=== PATIENT | male | born 1930 | race Caucasian/White ===

== ENCOUNTER 2016-10-05 15:26 | Emergency (ER) | payer MEDICARE, OTHER ==
[2014-09-28 16:29] VITALS: BMI 25.7
[~2016-10-05 15:26] MED LIST: ASCORBIC ACID500 MG PO; DIOVAN160 MG PO; DIOVAN80 MG PO; FOLIC ACID1 MG; HYTRIN5 MG PO; LOMOTIL TABLET1 TAB PO; LYRICA75 MG PO; MOBIC7.5 MG PO; NORVASC2.5 MG PO; PRILOSEC20 MG PO; RESTORIL15 MG PO; ULTRAM50 MG PO; VITAMIN B COMPL1 TAB PO; [UNRECOGNIZED DRUG - OTHER] PO
[2016-10-05 17:45] LABS: APPEARANCE CLEAR (CLEAR); BILIRUBIN NEGATIVE (NEGATIVE); COLOR YELLOW (YELLOW); GLUCOSE NEGATIVE (NEGATIVE); KETONE NEGATIVE (NEGATIVE); LEUKOCYTE ESTERASE NEGATIVE (NEGATIVE); NITRITE NEGATIVE (NEGATIVE); PROTEIN TRACE mg/dL (NEGATIVE); UROBILINOGEN NORMAL (NORMAL)
[2016-10-06] MEDS ORDERED: DIOVAN160 MG PO (19:57)
[2016-10-06] MEDS ORDERED: NORVASC5 MG PO (20:00)
[2016-10-06] MEDS ORDERED: HYTRIN5 MG PO (20:01)
[2016-10-06] MEDS ORDERED: LAMISIL250 MG PO (20:09)
== END 2016-10-05 18:40 | disposition home or self-care (01) ==
LOC: D.ER 15:26
PROVIDERS: Physician Assistant Medical
DX: M54.16 Radiculopathy, lumbar region (principal); I10 Essential (primary) hypertension

== ENCOUNTER 2016-10-06 15:50 | Inpatient (IN) | payer MEDICARE, OTHER ==
[~2016-10-06] VITALS: Ht 182.9 cm; Wt 88.6 kg
--- NOTE | 2016-10-06 17:52 | NUR ---
IV SITED TO LEFT HAND WITH 22 GA X1 STICK. NS INITIATED @ 30 CC/HR VIA PUMP. MORPHINE 2 MG SIVP. SCDs APPLIED TO BLE. CALL LIGHT IN REACH. FAMILY IN ROOM. WILL CONTINUE WITH PLAN OF CARE.
[2016-10-06 18:17] VITALS: BP 151/76; Ht 182.9 cm; Wt 88.6 kg
[2016-10-06 18:36] LABS: BASOPHILS 0.4 % (0-2); EOSINOPHILS 2.5 % (0-7); HEMATOCRIT 40.1 % (42.0-54.0); HEMOGLOBIN 13.3 g/dL (13.5-17.5); IMMATURE GRANULOCYTES 0.2 % (0-5); LYMPHOCYTES 29.9 % (15-50); MCH 31.1 pg (26.0-34.0); MCHC 33.2 g/dL (31.0-37.0); MCV 93.9 fL (80.0-100.0); MEAN PLATELET VOLUME 10.7 fL (7.4-10.4); MONOCYTES 10.3 % (2-11); NEUTROPHILS 56.7 % (40-80); PLATELET COUNT 105 10x3/uL (130-400); RBC 4.27 10x6/uL (4.20-6.10); RDW 13.2 % (11.5-14.5); WBC 4.8 10x3/uL (4.8-10.8)
[2016-10-06 18:39] LABS: INR 1.11 (0.85-1.17); PROTIME 14.2 SECONDS (11.6-15.0)
--- NOTE | 2016-10-06 18:55 | NUR ---
IV STEROIDS PER ORDER. HX OBTAINED AND MED REC REVIEWED. NO CHANGES IN INITIAL ASSESSMENT. CALL LIGHT IN REACH. VISITORS AT BEDSIDE. WILL CONTINEU WITH PLAN OF CARE.
[2016-10-06] MEDS ORDERED: DIOVAN160 MG PO (19:57)
[2016-10-06 19:59] LABS: ANION GAP 7.5 mmol/L (8-16); CALCIUM 8.6 mg/dL (8.5-10.1); CARBON DIOXIDE 33.4 mmol/L (21.0-32.0); CREATININE - SERUM 1.3 mg/dL (0.6-1.3); POTASSIUM - SERUM 3.9 mmol/L (3.5-5.1)
[2016-10-06 20:00] VITALS: BP 169/83
[2016-10-06] MEDS ORDERED: NORVASC5 MG PO (20:00)
[2016-10-06] MEDS ORDERED: HYTRIN5 MG PO (20:01)
[2016-10-06] MEDS ORDERED: LAMISIL250 MG PO (20:09)
--- NOTE | 2016-10-06 21:54 | NUR ---
PATIENT RESTING IN BED WITH EYES CLOSED NO SIGNS OF DISTRESS NOTED. ALERT AND ORIENTED. SCHEDULED MEDS GIVEN. SHIFT ASSESSMENT COMPLETED. DENIES ANY NEEDS AT THIS TIME. BED LOW. CALL LIGHT IN REACH
[2016-10-07] VITALS (7 sets, daily range): BP systolic 130–171; BP diastolic 71–82
--- NOTE | 2016-10-07 09:00 | NUR ---
ASSESSMENT PER FLOW SHEET.PT WITHOUT DISTRESS.CALL LIGHT IN REACH
--- NOTE | 2016-10-07 13:56 | HP ---
PATIENT: CLARISSA GALLEGO MEDICAL RECORD: [id number] ACCOUNT: [id number] LOCATION:[id number] : 30 ADMISSION DATE: 10/06/16 HISTORY AND PHYSICAL EXAMINATION REASON FOR ADMISSION: Intractable back and right leg pain, and foot drop. HISTORY OF PRESENT ILLNESS: The patient is an 86-year-old male with history of lumbar canal stenosis. He had surgery on his back several years ago with a decompression at L2-L3 and L3-L4. He has had chronic back pain since that time. He had acute onset of right radicular pain which is new in his right inner thigh and down into his knee 3 days ago. It became incapacitating, he initially went to the Emergency Room where plain x-rays showed postoperative changes. He was given oral Mepergan and told to follow up with me. The patient stated when I walked in the Emergency Room, his right leg buckled and he almost fell. He now has noticed some decreased strength in the legs and admitted to numbness. It seems that he cannot get out of pain and is now being directly admitted to the hospital for intractable back pain after MRI shows evidence of prior stenosis at multiple levels, but an L3-L4 herniated disc with right nerve root impingement. 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 PAST SURGICAL HISTORY: Lumbar discectomy and decompression by Dr. Deion Parra years ago at [place]. He has had 2 intrathecal injections, hospitalized October 06 for gastroenteritis resulting in acute renal insufficiency. ALLERGIES: SULFA, SHELLFISH, HYDROCODONE AND ATENOLOL CAUSING BRADYCARDIA. 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 He quit smoking over 41 years ago. He does not drink alcohol or use illicit drugs. He plays golf 3 times a week. His is in good health. MEDICATIONS: Mepergan 50 mg tablet q.4 hours for pain, Tylenol p.r.n., terazosin 5 mg p.o. at h.s., amlodipine 5 mg p.o. at bedtime, vitamin B complex 1 daily, Lyrica 75 mg p.o. t.i.d., meloxicam 15 mg daily, valsartan 160 mg daily, folic acid 1 mg daily, omeprazole 20 mg daily, Restoril 15 mg at h.s. p.r.n. sleep. REVIEW OF SYSTEMS: CONSTITUTIONAL: Denies fever or fatigue. HEENT: No recent visual change or sinus congestion. He has had some hearing loss. RESPIRATORY: No severe cough or sputum production. CARDIAC: No chest pain. GASTROINTESTINAL: No nausea, vomiting or constipation. GENITOURINARY: Nocturia once or twice nightly. ENDOCRINE: Denies polyuria, polydipsia, heat or cold intolerance. NEUROLOGIC: No history of stroke, TIA or vascular headaches. He has noticed decreased strength in his right leg for the last 48 hours. MUSCULOSKELETAL: Chronic and acute low back pain, now radicular into his right upper thigh and in the knee. HISTORY AND PHYSICAL [id number] CLARISSA GALLEGO PHYSICAL EXAMINATION: GENERAL: The patient appears in acute pain, sitting in a wheelchair, unable to stand on his right leg and walk meaningfully. His height is 6 feet. VITAL SIGNS: Blood pressure is 123/64, heart rate is 70 and regular, O2 sat 97% on room air. His weight is 196 pounds 13 ounces. HEENT: Normocephalic. Eyes are clear. NECK: Supple, without bruits. CHEST: Clear. HEART: Regular rate. ABDOMEN: Soft, nontender. GENITOURINARY: Unremarkable. RECTAL: Deferred. EXTREMITIES: No CC&E. NEUROLOGICAL: He is oriented to person, place and time. Upper extremities, unremarkable, good strength. Lower extremities, he has weak plantar and dorsiflexion of his right foot, 1/4 versus is 4/4 on the left. He dorsiflexes foot mainly by using his quadriceps. Reflexes are decreased bilaterally, right greater than left, in the lower extremities. Sensation, decreased sensation to touch on top of his right foot. Stat MRI of the lumbar spine showed edema and endplate erosion at L2-L3, prominent central left-sided disc bulging, L3-L4 herniated nucleus pulposus, lumbar canal stenosis, anterolisthesis of L3-L4 and spondylosis. PLAN: The patient is admitted to the hospital for pain control, IV steroids and neurosurgical consultation. TRANSINT:[id number] Voice Confirmation ID: [id number] DOCUMENT ID: [id number] GUERA LINARES MD at 1356 CC: [id number] DICTATION DATE: 10/07/16 0835 NUISANCE WILDLIFE TRAPPER: 10/07/16 1019 ADM IN [facility] [address] [id number]
--- NOTE | 2016-10-07 15:42 | NUR ---
Patient Name: CLARISSA GALLEGO Admission Status: Elective Accout number: [id number] Admission Date: 10-06-2016 : 1930 Admission Diagnosis: Attending: LOUIS Current LOS: 1 Anticipated DC Date: 10-08-2016 Planned Disposition: Home Primary Insurance: MEDICARE A & B Discharge Planning Comments: CM MET WITH PATIENT, , AND SON (MALVIN) REGARDING D/C NEEDS AND PLANS. MALVIN STATED HE WOULD DRIVE HIS FATHER HOME AT DISCHARGE. PATIENT HAS NO STEPS OR STAIRS AT HIS HOME. PATIENT IS INDEPENDENT WITH HIS CARE AND HAS A WALKER, WHEELCHAIR, CANE, AND BUILT IN SHOWER CHAIR AT HOME. PATIENTS PCP IS DR. LINARES AND PHARMACY IS [facility]. PATIENT HAS NOT HAD HOME HEALTH AND DOES NOT WANT IT AT THIS TIME. CM WILL CONTINUE TO FOLLOW PATIENT WITH D/C NEEDS AND PLANS. PCP DR. ENGLISH [facility] [phone] MALVIN (SON) [phone]) Reporting Lead: Tiffanie Wood Is the patient Alert and Oriented? Yes 0 * How many steps to enter\exit or inside your home? 0 0 * PCP DR. LINARES 0 * Pharmacy [facility] 0 * Preadmission Environment Home with Family 0 * ADLs Independent 0 * Equipment Cane Walker Wheelchair 0 * Other Equipment BUILT IN SHOWER CHAIR 0 * List name and contact numbers for known caregivers / representatives who currently or will assist patient after discharge: MALVIN (SON) [phone] * Community resources currently utilized None 0 * Additional services required to return to the preadmission environment? Yes 0 * Can the patient safely return to the preadmission environment? Yes 0 * Has this patient been hospitalized within the prior 30 days at any hospital? No 0 Grand Total: 0
--- NOTE | 2016-10-07 18:33 | NUR ---
DECLINES ENEMA STILL. HE IS WITHOUT DISTRESS.CONT PLAN OF CARE
--- NOTE | 2016-10-07 21:06 | NUR ---
PATIENT SITTING UP IN BED. ALERT AND ORIENTED. TALKING WITH VISITOR. DENIES ANY PAIN AT THIS TIME. SCHEDULED MEDS GIVEN. SHIFT ASSESSMENT COMLETED. BED LOW. CALL LIGHT IN REACH
--- NOTE | 2016-10-07 23:30 | NUR ---
PATIENT C/O PAIN 8/10 TO BACK/LEG. STATES HE WAS TRYING TO GET INTO A COMFORTABLE POSITION AND SHARP PAIN SHOT DOWN HIS LEG AND WOULD NOT EASE. PRN MORPHINE GIVEN ORDERED.
--- NOTE | 2016-10-08 01:33 | NUR ---
PATIENT COMPLAINING OF PAIN 8/10 TO BACK AND LEG. STATES PAIN EASED FOR A SHORT PERIOD BUT HAS RETURNED. REFUSING TO USE HEAT/ICE PACK. REQUESTING ADDITIONAL DOSE OF MORPHINE. GIVEN ORDERED.
--- NOTE | 2016-10-08 03:43 | NUR ---
PT C/O PAIN 12/01 TO BACK AND LEGS. STATES MORPHINE DOESNT LAST LONG ENOUGH. REQUESTED TYLENOL. GIVEN ORDERED.
--- NOTE | 2016-10-08 04:17 | NUR ---
EYES CLOSED RESPIRATIONS WITH EASE AND UNLABORED SR UP X2 CALL LIGHT WITHIN REACH.
[2016-10-08 06:30] VITALS: BP 141/72
--- NOTE | 2016-10-08 07:10 | NUR ---
ASSESSMENT PER FLOW SHEET.PT WITHOUT DISTRESS.PAIN 3/10 ON PAIN SCALE.PT REPORTS PAIN IN BACK.
--- NOTE | 2016-10-08 07:25 | NUR ---
ASSESSMENT PER FLOW SHEET.PT WITHOUT DISTRESS.PAIN 8/10 SCALE TO RIGHT ARM.MEDS ORDERED.PT IS GOING TO AMBULATE WITH FAMILY.
[2016-10-08 07:48] VITALS: BP 193/89
--- NOTE | 2016-10-08 08:05 | NUR ---
MEDS ORDERED. 2 LARGE SOFT STOOLS RESULTED FROM ENEMA THIS AM.MONITOR FOR NEEDS
--- NOTE | 2016-10-08 11:49 | NUR ---
PAIN MEDS ORDERED,WITHOUT DISTRESS.
[2016-10-08 12:13] VITALS: BP 164/76
[2016-10-08] MEDS ORDERED: MS CONTIN15 MG PO (12:19)
[2016-10-08] MEDS ORDERED: MEDROL DOSE PACK4 MG PO (12:20)
--- NOTE | 2016-10-08 13:50 | NUR ---
discharge instructions,states understanding.iv dcd with cath intact
--- NOTE | 2016-10-08 14:06 | NUR ---
LEFT UNIT VIA WHEELCHAIR.
--- NOTE | 2016-10-08 14:42 | NUR ---
LATE ENTRY CM REASSESSMENT NOTE: PATIENT D/C HOME TODAY BY PRIVATE CAR (SON). PATIENT HAD NO NEEDS FOR DISCHARGE.
== END 2016-10-08 14:06 | disposition home or self-care (01) | DRG 552 ==
LOC: D.MRI 15:50 → D.MS 17:11
PROVIDERS: ADMIT Family Medicine
DX: M51.26 Other intervertebral disc displacement, lumbar region (principal); M47.9 Spondylosis, unspecified; M21.379 Foot drop, unspecified foot; G25.81 Restless legs syndrome; N40.0 Benign prostatic hyperplasia without lower urinary tract symptoms; I10 Essential (primary) hypertension; K21.9 Gastro-esophageal reflux disease without esophagitis

== ENCOUNTER 2019-10-28 00:57 | Inpatient (IN) | payer MEDICARE, OTHER ==
[2019-10-28] VITALS (20 sets, daily range): BP systolic 104–148; BP diastolic 55–82; BMI 28.7
[~2019-10-28] VITALS: Ht 182.9 cm; Wt 92.0 kg
--- NOTE | ~2019-10-28 | HEMODYNAMI ---
PATIENT:CLARISSA GALLEGO MEDICAL RECORD: [id number] : 30 [id number] ADMISSION DATE: 10/28/19 Generatedon:10/28/20192:57 Patient name: CLARISSA GALLEGO Patient #: [id number] SSN: : 1930 Date of study: 10/28/2019 Page: Of Hemodynamic Procedure Report Patient Data Patient Demographics Procedure consent was obtained First Name: CLARISSA Gender: Male Last Name: JULIÁN : 1930 [facility] Initial: ANETA Age: 89 year(s) Patient #: [id number] Race: Unknown Additional ID: [id number] Contact details Address: [address] [place] [address] circle State: [place] City: [place] Zip code: [address] Past Medical History Allergies Allergen Reaction Date Comments Reported Other allergy 10/28/2019 IODINE Admission Admission Data Admission Date: 10/28/2019 Admission Time: 0:57 Lab Results Lab Result Date: 10/28/2019 Lab Result Time: 0:00 Biochemistry Name Units Result Min Max BUN mg/dl 21 --(----)-* 7 18 Creatinine mg/dl 1.5 --(----)-* 0.6 1.3 eGFR ml/min 47 *-(----)-- 90 120 NONAFRICAN CBC Name Units Result Min Max Hematocrit % 41.5 -*(----)-- 42 54 Hemoglobin g/dl 13.7 --(*---)-- 13.5 17.5 Procedure Procedure Types Cath Procedure Diagnostic Procedure LHC LHC w/Coronaries PCI Procedure AMI/SVG/COMMERCIAL BAKER HELPER PTCA or Stent AMI-BMS/JESSICA Initial Hemochron ACT Test Procedure Description Procedure Date Procedure Date: 10/28/2019 Procedure Start Time: 2:11 Procedure End Time: 2:55 Procedure Staff Name Function Piotr Garcia MD Performing Physician Sabrina Dietz RT Monitor Marizol Mao RT Scrub Charlene Camejo RN Nurse Marcia Olivarez RT Scrub Procedure Data Cath Procedure Fluoroscopy Diagnostic fluoroscopy Total fluoroscopy Time: 7.5 time: 7.5 min min Diagnostic fluoroscopy Total fluoroscopy dose: dose: 1199 mGy 1199 mGy Contrast Material Contrast Material Type Amount (ml) Isovue 300 136 Entry Location Entry Primary Successful Side Size Upsize Upsize Entry Closure Succes sful Closure Location (Fr) 1 (Fr) 2 (Fr) Remarks Device Remarks Femoral Right 6 Fr Exoseal artery Short Estimated blood loss: 10 ml Diagnostic catheters Device Type Used For End Catheter Placement MULTIPACK JL 4.0 5Fr Procedure catheter MULTIPACK 3DRC 5Fr Procedure catheter MULTIPACK Pigtail 5 Fr Procedure catheter Procedure Complications No complications Procedure Medications Medication Administration Route Dosage Oxygen NRB 12 l/min Solumedrol I.V. 125 mg Lidocaine 2% added to field 20 unlisted medication I.V.P.B 1 mg/min Heparin Flush Bag added to field 2 bags (1000units/500ml NS) 0.9% NaCl I.V. 100 ml/hr Integrilin (Bolus I.V. 7.9 ml 2mg/ml) Heparin Bolus I.V. 3000 units Versed I.V. 1 mg Versed I.V. 1 mg Integrilin Drip I.V. drip 7 ml/hr (75mg/100ml) Hemodynamics Rest HGB: 13.7 (g/dl) Heart Rate: 69 (bpm) Pressure Samples Time Site Value (mmHg) Purpose Heart Use Rate(bpm) 2:17 LV 76/1,7 Snapshot 76 2:17 LV 108/5,30 Snapshot 85 Gradients Valve Time Site Site Mean SEP/DFP Peak To Heart Use 1 2 (mmHg) (sec/min) Peak Rate (mmHg) (bpm) Aortic 2:17 LV AO 72 Snapshots Pre Cath Intra NCS Post Cath Vital Signs Time Heart Resp SPO2 etCO2 NIBP (mmHg) Rhythm Pain Sedation Rate (ipm) (%) (mmHg) Status Level (bpm) 2:07:22 67 18 92 0 116/74(93) NSR 0 (11) 10(A) , No pain 2:12:15 68 19 92 0 114/62(92) NSR 0 (11) 10(A) , No pain 2:16:29 68 19 93 0 115/63(94) NSR 0 (11) 10(A) , No pain 2:20:43 67 17 93 0 120/62(98) NSR 0 (11) 10(A) , No pain 2:24:59 64 20 94 0 121/65(102) NSR 0 (11) 10(A) , No pain 2:29:09 63 19 92 0 118/75(94) NSR 0 (11) 10(A) , No pain 2:33:25 62 19 92 0 122/63(113) NSR 0 (11) 10(A) , No pain 2:37:41 67 12 93 0 132/66(101) NSR 0 (11) 10(A) , No pain 2:42:05 94 14 92 0 75/55(65) NSR 0 (11) 10(A) , No pain 2:47:16 71 15 94 0 144/52(101) NSR 0 (11) 10(A) , No pain 2:51:16 0 No Cuff NSR 0 (11) 10(A) , No pain 2:55:15 0 No Cuff NSR 0 (11) 10(A) , No pain Medications Time Medication Route Dose Verified Delivered Reason Notes Effectiveness by by 2:09:40 Versed I.V. 1 mg Piotr Chang for Radha Nell MEEKS sedation 2:09:41 Oxygen NRB 12 Piotr Buffie used for transferre d l/min St Adriel Camejo governor assembler hydraulic from er with nrb in place 2:10:24 Solumedrol I.V. 125 mg Piotr Chang Per transferre d [facility] Adriel Camejo RN physician from er with nrb in place 2:10:32 Lidocaine 2% added 20ml Piotr Saldaña for local transferre d to vial [facility] anesthetic from er field MD ELENA with nrb in place 2:10:43 amiodarone I.V.P.B 1 Piotr Piotr Per mg/min [facility] physician MD ELENA 2:12:50 Heparin Flush added 2 bags Piotr Saldaña used for Bag to [facility] procedure (1000units/500ml field MD ELENA NS) 2:13:12 0.9% NaCl I.V. 100 Piotr Buffie Per ml/hr Radha Nell RN physician 2:15:17 Integrilin I.V. 7.9 ml Piotr Chang Per Wasted 2.1 (Bolus 2mg/ml) Radha Camejo RN physician ml of vial 2:16:43 Heparin Bolus I.V. 3000 Piotr Buffie Per verified units [facility] Adriel Camejo RN physician with dr MD dennis 2:30:54 Versed I.V. 1 mg Piotr Buffie for St Adriel Camejo RN sedation 2:47:18 Integrilin Drip I.V. 7 Piotr Buffie Per (75mg/100ml) drip ml/hr [facility] Adriel Camejo RN physician Procedure Log Time Note 1:51:39 Informed consent obtained and on chart 1:52:05 Sabrina Dietz RT(R) sent for patient. Start room use. 1:52:08 Procedure Status Emergent Heart Cath (AMI). 1:52:14 Plan of Care:Hemodynamics will remain stable., Cardiac rhythm will remain stable., Comfort level will be maintained., Respiratory function will remain adequate., Patient/ family verbilizes understanding of procedure., Procedure tolerated without complication., Recovers from procedure without complications.. 1:52:21 H&P Date Dictated: 10/28/2019 ER History on chart.. 1:57:16 Diagnostic Cath Status : Urgent 1:57:19 PCI Cath Status : Urgent 2:06:11 Patient received from ED to CCL 1 Alert and oriented. Tansferred to table in Supine position. 2:06:13 Warm blankets applied, and poonam hugger turned on for patient comfort. 2:06:13 Correct patient and procedure confirmed by team. 2:06:13 ECG and BP/O2 sat monitors applied to patient. 2:06:15 Vital chart was started 2:06:16 Baseline sample Acquired. 2:06:24 Rhythm: sinus rhythm 2:06:26 Full Disclosure recording started 2:06:27 Pre-op teaching completed and patient verbalized understanding. 2:06:27 Pre-procedure instructions explained to patient. 2:06:32 Family in waiting room. 2:06:34 Patient NPO since Midnight. 2:06:43 Patient allergic to Other allergyIODINE 2:06:48 Is patient on blood thinner?No 2:06:50 Patient diabetic? No. 2:06:54 Previous problem with sedation/anesthesia? No ? 2:06:56 Snore? Yes 2:06:57 Sleep apnea? No 2:06:58 Deviated septum? No 2:06:59 Opens mouth fully? Yes 2:07:00 Sticks out tongue? Yes 2:07:03 Airway obstruction? No ? 2:07:05 Dentures? No ? 2:07:07 Pre procedure: right dorsailis pedis pulse 1+ Palpable, but thready & weak; easily obliterated 2:07:15 IV patent on arrival in right antecubital with 0.9% NaCl at O. 2::42 Lab Result : Creatinine 1.5 mg/dl 2:: Lab Result : BUN 21 mg/dl 2:: Lab Result : eGFR NONAFRICAN 47 ml/min 2:: Lab Result : Hemoglobin 13.7 g/dl 2:: Lab Result : Hematocrit 41.5 % 2::52 Right groin area was prepped with chlora-prep and draped in sterile fashion 2::53 Alarms reviewed by R. N. 2::53 Sharps counted by scrub and verified by R.N. 2::59 --------ALL STOP TIME OUT------ 2:09:00 Final Timeout: patient, procedure, and site verified with staff and physician. All members of the team are in agreement. 2:09:01 Right groin site verified by team. 2:09:03 Fire Safety Assessment: A--An alcohol-based skin anteseptic being used preoperatively., C--Open oxygen or nitrous oxide is being used., D--An ESU, laser, or fiber-optic light is being used. 2:09:05 Physical assessment completed. ASA score P 2 - A patient with mild systemic disease as per Piotr Garcia MD. 2:09:07 3a) 45-59 Moderately reduced kidney function. 2:09:10 Maximum allowable contrast dose (3.7 X eGFR X 0.75)147 ml. 2:09:12 Sedation plan: IV Moderate Sedation Medication:Versed, Fentanyl 2:09:21 Use device set Femoral Dx 2:09:22 ACIST Syringe (77079) opened to sterile field. 2:09:23 Bag Decanter () opened to sterile field. 2:09:24 ACIST Hand Control (87193) opened to sterile field. 2:09:25 ACIST Manifold (48498) opened to sterile field. 2:09:28 Medline Cath Pack ([id number]) opened to sterile field. 2:09:29 DIAGNOSTIC Multipack 5Fr catheter set ([id number]) opened to sterile field. 2:09:30 EMERALD Guide Wire (502-978) opened to sterile field. 2:09:35 SHEATH 6FR [place] (OMK483) opened to sterile field. 2:09:39 WHISPER 300cm guide wire ([id number]) opened to sterile field. 2:09:40 Versed 1 mg I.V. was administered by Charlene Camejo RN; for sedation; Verbal order read back and verified. 2:09:41 Oxygen 12 l/min NRB was administered by Charlene Camejo RN; used for procedure; transferred from er with nrb in place Verbal order read back and verified. 2:09:42 INFLATOR Merit BasixCompak (HY5579) opened to sterile field. 2:10:20 Zero performed for pressure channel P1 2:10:24 Solumedrol 125 mg I.V. was administered by Charlene Camejo RN; Per physician; transferred from er with nrb in place Verbal order read back and verified. 2:10:26 Zero performed for pressure channel P1 2:10:32 Lidocaine 2% 20ml vial added to field was administered by Piotr Garcia MD; for local anesthetic; transferred from er with nrb in place Verbal order read back and verified. 2:10:32 Zero performed for pressure channel P1 2:10:42 Zero performed for pressure channel P1 2:10:43 amiodarone 1 mg/min I.V.P.B was administered by Piotr Garcia MD; Per physician; Verbal order read back and verified. 2:10:51 Procedure started. 2:11:47 Local anesthetic to right femoral artery with Lidocaine 2% by Piotr Garcia MD.INITIAL ACCESS ONLY 2:12:50 Heparin Flush Bag (1000units/500ml NS) 2 bags added to field was administered by Piotr Garcia MD; used for procedure; Verbal order read back and verified. 2:12:55 A 6 Fr Short sheath was inserted into the Right Femoral artery 2:13:12 0.9% NaCl 100 ml/hr I.V. was administered by Charlene Camejo RN; Per physician; Verbal order read back and verified. 2:13:15 A MULTIPACK JL 4.0 5Fr catheter was advanced over the wire and used for Procedure. 2:15:01 LCA angiography performed. 2:15:03 Catheter removed. 2:15:17 Integrilin (Bolus 2mg/ml) 7.9 ml I.V. was administered by Charlene Camejo RN; Per physician; Wasted 2.1 ml of vial Verbal order read back and verified. 2:15:19 A MULTIPACK 3DRC 5Fr catheter was advanced over the wire and used for Procedure. 2:15:57 RCA angiography performed. 2:15:59 Catheter removed. 2:16:07 A MULTIPACK Pigtail 5 Fr catheter was advanced over the wire and used for Procedure. 2:16:12 LV gram done using TEJADA 2:16:15 Injector settings: Ml/sec: 10, Volume: 20, 2:16:43 Heparin Bolus 3000 units I.V. was administered by Charlene Camejo RN; Per physician; verified with dr dennis Verbal order read back and verified. 2:17:20 EF : 55 % 2:17:21 LV hemodynamics recorded. 2:17:39 GUIDE 6FR XBLAD 3.5 catheter ([id number]) opened to sterile field. 2:17:50 6 Fr XBLAD 3.5 guide catheter was inserted over the wire 2:19:45 Pre PCI Site: [place] has 90% stenosis. 2:20:33 WHISPER 300 wire advanced. 2:23:02 Wire advanced across lesion. 2:26:33 The INTEGRITY RX 3.0 x 18 stent ([id number]) was advanced then removed because of failure to cross lesion 2:27:36 Inflate balloon Inflation number: 1 A EMERGE OTW 2.5 x 15 balloon ([id number]) was prepped and advanced across the Mid CX , then inflated to 8 DHRUV for 0:00 (min:sec) . 2:29:04 Inflation number: 2 The EMERGE OTW 2.5 x 15 balloon ([id number]) was reinflated across the Mid CX , to 10 DHRUV for 0:00 (min:sec) . 2:29:53 Inflation number: 3 The EMERGE OTW 2.5 x 15 balloon ([id number]) was reinflated across the Mid CX , to 10 DHRUV for 0:00 (min:sec) . 2:30:31 Inflation number: 4 The EMERGE OTW 2.5 x 15 balloon ([id number]) was reinflated across the Mid CX , to 10 DHRUV for 0:00 (min:sec) . 2:30:44 Balloon removed over the wire. 2:30:54 Versed 1 mg I.V. was administered by Charlene Camejo RN; for sedation; Verbal order read back and verified. 2:33:22 Place stent Inflation Number: 5 A INTEGRITY RX 3.0 x 18 stent ([id number]) was prepped and advanced across the Mid CX . The stent was deployed at 16 DHRUV for 0:00 (min:sec) . 2:34:14 Inflation number: 6 The stent balloon was then re-inflated across the Mid CX to 10 DHRUV for 0:00 (min:sec) . 2:34:51 Stent catheter was removed intact over wire. 2:35:04 Wire removed. 2:35:04 Guide catheter removed. 2:36:06 EXOSEAL 6Fr (EX600) opened to sterile field. 2:36:16 Sheath removed intact; hemostasis achieved with Exoseal to the Right Femoral artery. 2:36:17 Procedure ended.(Physican Out) 2:36:35 Fluoroscopy time 07.50 minutes. 2:36:38 Fluoroscopy dose: 1199 mGy 2:36:38 Flurop Dose total: 1199 2:36:43 Dose Area Product 38413 mGy/cm. 2:43:45 ACT drawn and resulted at 214 seconds. (normal therapeutic range 180-240 seconds). 2:43:54 Contrast amount:Isovue 300 136ml. 2:43:57 Maximum allowable dose exceeded? Yes. 2:43:58 Sharps counted by scrub and verified by R.N. 2:44:05 FEMSTOP Gold ([id number]) opened to sterile field. 2:44:20 Femstop placed over the right femoral artery at 175 mmHg. Hemostasis achieved. 2:44:23 Post-procedure physical assessment completed. ASA score P 2 - A patient with mild systemic disease as per Piotr Garcia MD. 2:44:26 Post procedure rhythm: unchanged. 2:44:28 Estimated blood loss: 10 ml 2:44:30 Post procedure instruction explained to patient.Patient verbalizes understanding. 2:44:30 Patient needs reinforcement of post procedure teaching. 2:45:44 Procedure type changed to Cath procedure, Diagnostic procedure, LHC, [facility] w/Coronaries, PCI procedure, AMI/SVG/COMMERCIAL BAKER HELPER PTCA or Stent, AMI-BMS/JESSICA Initial, Hemochron ACT Test 2:46:14 Procedure and supply charges have been captured, reviewed, submitted and are correct. 2:46:17 Procedure Complication : No complications 2:46:20 [facility] Findings: MVD- PCI performed (see procedure note) 2:46:22 Operative report dictated upon procedure completion. 2:46:22 See physician's report for complete and final results. 2:46:23 Report given to CVICU. 2:46:26 Patient transfered to CVICU with Bed. 2:47:18 Integrilin Drip (75mg/100ml) 7 ml/hr I.V. drip was administered by Charlene Camejo RN; Per physician; Verbal order read back and verified. 2:55:55 Vital chart was stopped 2:55:57 Procedure ended. 2:55:57 Full Disclosure recording stopped 2:56:01 End room use (Document Last) 2:56:28 End room use (Document Last) 2:56:55 End room use (Document Last) Intervention Summary Intervention Notes Time ActionType Lesion and Equipment Action# Pressure Duration Attributes Used 2:26:33 Discard INTEGRITY RX Stent 3.0 x 18 stent ([id number]) 2:27:36 Inflate Mid CX EMERGE OTW 1 8 00:00 balloon 2.5 x 15 balloon ([id number]) 2:29:04 Reinflate Mid CX EMERGE OTW 2 10 00:00 balloon 2.5 x 15 balloon ([id number]) 2:29:53 Reinflate Mid CX EMERGE OTW 3 10 00:00 balloon 2.5 x 15 balloon ([id number]) 2:30:31 Reinflate Mid CX EMERGE OTW 4 10 00:00 balloon 2.5 x 15 balloon ([id number]) 2:33:22 Place stent Mid CX INTEGRITY RX 5 16 00:00 3.0 x 18 stent ([id number]) 2:34:14 Reinflate Mid CX INTEGRITY RX 6 10 00:00 stent 3.0 x 18 balloon stent ([id number]) Device Usage Item Name Manufacture Quantity Catalog Number Hospital Part Current Min imal Lot# / Charge Number Stock Stock Serial# Code ACIST Acist 1 29311 910051 146476 906775 20 Syringe Medical (09895) Systems Inc Bag Decanter Microtek 1 046244 54323 466852 5 () Medical Inc. ACIST Hand Acist 1 81976 737916 318325 103602 5 Control Medical (00000) Systems Inc ACIST Acist 1 53161 116552 434597 705709 5 Manifold Medical (94055) Systems Inc Medline Cath Medline 1 [id number] 948373 25325 326344 5 Pack ([id number]) DIAGNOSTIC Cardinal 1 QZ7204 083153 60889 779013 30 Multipack MeroArte 5Fr catheter set (VZ5538) EMERALD Cardinal 1 502-455 730851 938971 043022 5 Guide Wire MeroArte (502-455) SHEATH 6FR Terumo 1 NHE360 064340 769692 165421 40 [place] (QGD888) WHISPER Cabrera 1 [id number] 638889 700880 361531 5 300cm guide Vascular wire ([id number]) INFLATOR EPS 1 FR8589 287762 318508 540282 15 Kloudco BasixCompak (PH6575) MULTIPACK JL Cardinal 1 093619 5 4.0 5Fr Health catheter MULTIPACK Cardinal 1 661647 5 3DRC 5Fr Health catheter MULTIPACK Cardinal 1 045754 5 Pigtail 5 Fr Health catheter GUIDE 6FR Cardinal 1 29990005 586363 602963 383023 10 XBLAD 3.5 Health catheter ([id number]) INTEGRITY RX Medtronic 1 [id number] 898700 235860 204246 5 [id number] 3.0 x 18 stent ([id number]) EMERGE OTW [place] 1 [id number] 825872 167515 100745 5 [id number] 2.5 x 15 Scientific balloon ([id number]) EXOSEAL 6Fr Cardinal 1 EX600 042103 713082 998100 10 (EX600) Health FEMSTOP Gold [facility] Cornelio 1 C77007 362318 185704 824106 5 ([id number]) Signature Audit [place] Stage Time Signature Unsigned Intra-Procedure 10/28/2019 Sabrina Dietz 2:56:28 AM RT(R) Intra-Procedure 10/28/2019 Charlene Camejo RN 2:56:55 AM Intra-Procedure 10/28/2019 Piotr Felix 2:57:45 AM Adriel ELENA [facility] [address] [place] [address]
[~2019-10-28 00:57] MED LIST changes: -FOLIC ACID1 MG; +FOLIC ACID1 MG PO; +LAMISIL250 MG PO; +MEDROL DOSE PACK4 MG PO; +MS CONTIN15 MG PO; +NORVASC5 MG PO
--- NOTE | 2019-10-28 01:08 | NUR ---
BLAST FURNACE KEEPER HELPER NOTIFIED TO CALL IN [facility] [employer].
[2019-10-28 01:09] LABS: HEMATOCRIT 41.5 % (42.0-54.0); HEMOGLOBIN 13.7 g/dL (13.5-17.5); MCH 30.7 pg (26.0-34.0); MEAN PLATELET VOLUME 10.3 fL (7.4-10.4); PLATELET COUNT 142 10x3/uL (130-400); RBC 4.46 10x6/uL (4.20-6.10); RDW 12.7 % (11.5-14.5)
[2019-10-28 01:14] LABS: APTT 28.5 SECONDS (22.8-39.4); INR 1.1 (0.85-1.17); PROTIME 14.2 SECONDS (11.6-15.0)
[2019-10-28 01:26] LABS: EOSINOPHILS 2 % (0-7); LYMPHOCYTES 27 % (15-50); MONOCYTES 7 % (2-11); NEUTROPHILS 64 % (40-80); PLATELET ESTIMATE NORMAL
[2019-10-28 01:36] LABS: ALBUMIN 3.2 g/dL (3.4-5.0); ALKALINE PHOSPHATASE 77 U/L (30-120); ALT (SGPT) 48 U/L (10-68); BILIRUBIN - TOTAL 0.82 mg/dL (0.2-1.3); CALC OSMOLALITY 287 mosm/kg (275-300); CALCIUM 8.6 mg/dL (8.5-10.1); CARBON DIOXIDE 21.5 mmol/L (21.0-32.0); CHLORIDE - SERUM 103 mmol/L (98-107); CKMB 3.6 U/L (0.0-3.6); CREATINE KINASE 250 UL (21-232); CREATININE - SERUM 1.5 mg/dL (0.6-1.3); GLUCOSE 222 mg/dL (74-106); MAGNESIUM - SERUM 2.4 mg/dL (1.8-2.4); PROTEIN - SERUM 6.9 g/dL (6.4-8.2); SODIUM 139 mmol/L (136-145); TROPONIN-I < 0.017 ng/mL (0.000-0.060); UREA NITROGEN 21 mg/dL (7-18); eGFR NON AFRICAN AMERICAN 47 mL/min (90-120)
[2019-10-28] MEDS ORDERED: MOBIC7.5 MG PO (01:37)
--- NOTE | 2019-10-28 01:58 | NUR ---
SENIOR CHEMICAL ENGINEER AT BEDSIDE FOR TRANSPORT
--- NOTE | 2019-10-28 03:00 | NUR ---
PT RECIEVED FROM TREAD CUTTER VIA BED, A/OX4, LUNGS CLEAR, ON NONREBREATHER, SWITHED TO N/C @ 5L, LEFT PIV INTACT WITH INTEGRILLIN GTT INFUSING, RIGHT AC PIV INTACT WITH AMIODARONE GTT @ 1 MG/MIN, FEMSTOP IN PLACE TO RIGHT GROIN, PT WIGGLING LEGS AND SQUIRMING, STATES HE HAS RLS, INSTRUCTED HE NEEDED TO KEEP STILL, VITALS STABLE
[2019-10-28 05:12] LABS: CALCIUM 8.6 mg/dL (8.5-10.1); CHOL - HDL RATIO 2.5 ratio (2.3-4.9); CREATININE - SERUM 1.5 mg/dL (0.6-1.3); LDL-HDL RATIO 1.3 ratio (1.5-3.5)
--- NOTE | 2019-10-28 08:26 | NUR ---
0720: REC'D UNRESPONSIVE TO VERBAL STIMULI. FLUTTERS EYELIDS TO TACTILE STIMULI. PUPILS PINPOINT AND SLUGGISH. UNABLE TO OBTAIN ORAL TEMP. AXILLARY TEMP 94.3. DR. DAVALOS BY ARIAS RN. 0723: FSBS 218. 0725: NARCAN 2 MG GIVEN IV. 0726: ROMAZICON 0.5MG GIVEN IV. 0730: TO CT FOR STAT CT HEAD. 0755: RETURNED FROM CT. AWAKE. FOLLOWS COMMANDS. ORIENTED TO PLACE. DR. SHAY HERE.
--- NOTE | 2019-10-28 12:42 | CN ---
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 He is being brought to the dairy laboratory technician on an urgent basis. PAST MEDICAL HISTORY: Includes; 1. History of hypertension. 2. Osteoarthritis. 3. Gastroesophageal reflux disease. ALLERGIES: IODINE, HYDROCODONE. MEDICATIONS: Include Prilosec 20 mg p.o. day, Lyrica 75 mg p.o. b.i.d., meloxicam 50 mg p.o. daily, amlodipine 5 at bedtime, Diovan 160 b.i.d. SOCIAL HISTORY: Lives with . Nonsmoker. Easily takes care of all his ADLs. REVIEW OF SYSTEMS: The patient reports easy bruising but reports no swollen glands. The patient reports no fever, no night sweats, no significant weight gain, no significant weight loss. No significant exercise tolerance. The patient reports no dry eyes, no irritation, no vision change. Patient reports no difficulty hearing and no ear pain. Patient reports no frequent nose bleeds or nose and sinus problems. Patient reports on arm pain on exertion. No shortness of breath while lying down. No history of heart murmur. Patient reports no cough, no wheezing or coughing up blood. Patient reports no abdominal pain, no vomiting. Normal appetite. No diarrhea and not vomiting blood. No nausea and no constipation. Patient reports no incontinence. No difficulty urinating. No hematuria. No increased frequency. Patient reports no muscle aches. No weakness, no arthralgias, no back pain. No swelling of the extremities. Patient reports no abnormal mole, no jaundice, no rashes. Reports no loss of consciousness. No weakness and no numbness. No seizures, dizziness, or headaches. The patient reports no depression, no sleep disturbance, feeling safe in a relationship and no alcohol abuse. Patient reports on fatigue. Reports no runny nose or sinus pressure. No itching, no hives, and no frequent sneezing. PHYSICAL EXAMINATION: GENERAL: Pleasant gentleman in no acute distress, appears stated age, somewhat confused, sedated. VITAL SIGNS: Blood pressure 132/72, pulse 69 and regular. HEENT: Normocephalic, atraumatic. NECK: No JVD or bruit. HEART: Regular, II/ systolic ejection murmur. LUNGS: Good air excursion. CONSULT REPORT [id number] CLARISSA GALLEGO ABDOMEN: Soft, nontender. EXTREMITIES: Pulses 1+. There is no edema. 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 Plan for angiography, intervention on emergent basis. Given age, arrhythmias, etc. the patient is obviously at high risk for significant morbidity and mortality. TRANSINT:[id number] Voice Confirmation ID: [id number] DOCUMENT ID: [id number] HALEY SHAY MD at 1242 CC: [id number] DICTATION DATE: 10/28/19 0154 PARTS CLERK PLANT MAINTENANCE: 10/28/19 1221 ADM IN [facility] [address] [place] [address]
--- NOTE | 2019-10-28 19:35 | NUR ---
REPORT REC'D AND CARE ASSUMED, REC'D PT SITTING UP IN CHAIR ON OXYGEN 2 LITERS VIA HIGH FLOW NC, PT AWAKE, ALERT, AND ORIENTED, RIGHT A/C PIV SALINE LOCKED, LEFT FOREARM PIV WITH NS @ 50CC/HR, RIGHT GROIN PUNCTURE SITE WITH BRUISES, NO BLEEDING OR HEMATOMA NOTED, PPP, PT WISHES TO REMAIN UP IN CHAIR FOR NOW, BEDSIDE TABLE, URINAL, AND CALL LIGHT IN REACH.
--- NOTE | 2019-10-28 20:50 | NUR ---
EVENING MEDS GIVEN, PT REQUESTING LAXATIVE, EXPLAINED TO PT LAXATIVE NOT ORDERED AT THIS TIME BUT WOULD REQUEST ONE IN AM WHEN MD ROUNDS, ICE WATER PROVIDED, URINAL EMPTIED OF 400 CC NICHOLE COLORED URINE, CM-SR, PT DENIES PAIN OR NEEDS, VISIBLE TO NURSES STATION.
--- NOTE | 2019-10-28 23:00 | NUR ---
REASSESSMENT COMPLETED, NO CHANGES, FROM PREVIOUS ASSESSMEN, VSS.
[2019-10-29] VITALS (14 sets, daily range): BP systolic 129–165; BP diastolic 62–99
[2019-10-29 05:14] LABS: BASOPHILS 0 % (0-2); EOSINOPHILS 0.1 % (0-7); IMMATURE GRANULOCYTES 0.3 % (0-5); LYMPHOCYTES 6.8 % (15-50); MCHC 33.8 g/dL (31.0-37.0); MCV 91.5 fL (80.0-100.0); MEAN PLATELET VOLUME 10.5 fL (7.4-10.4); MONOCYTES 5.9 % (2-11); NEUTROPHILS 86.9 % (40-80); PLATELET COUNT 134 10x3/uL (130-400); RDW 12.8 % (11.5-14.5)
[2019-10-29 05:21] LABS: ANION GAP 12.3 mmol/L (8-16); CALCIUM 8.7 mg/dL (8.5-10.1); CARBON DIOXIDE 25.2 mmol/L (21.0-32.0); CREATININE - SERUM 1.6 mg/dL (0.6-1.3); POTASSIUM - SERUM 4.5 mmol/L (3.5-5.1)
[2019-10-29 05:22] LABS: HEMATOCRIT 32.5 % (42.0-54.0); RBC 3.55 10x6/uL (4.20-6.10); WBC 14.4 10x3/uL (4.8-10.8)
--- NOTE | 2019-10-29 15:00 | NUR ---
RECIEVED PT TO ROOM 2120 FROM CVICU IN STABLE CONDITION RESP UNLABORED 02 4 L/M HIGH FLOW LFA IV SITE PATENT WITH NS @ 50CC/HR SITE FREE OF REDNESS OR EDEMA DENIES ANY NEEDS OR DISCOMFORT AT THIS TIME
--- NOTE | 2019-10-29 20:05 | NUR ---
RECEIVED PT. RESTING IN BED. RR EVEN AND UNLABORED. NO DISTRESS OBSERVED. CALL LIGHT IN REACH. WILL CTM.
[2019-10-30 04:00] VITALS: BP 129/64
[2019-10-30 04:51] LABS: BASOPHILS 0.2 % (0-2); EOSINOPHILS 0.7 % (0-7); HEMATOCRIT 31.1 % (42.0-54.0); HEMOGLOBIN 10.2 g/dL (13.5-17.5); IMMATURE GRANULOCYTES 0.4 % (0-5); LYMPHOCYTES 9.7 % (15-50); MCH 30.6 pg (26.0-34.0); MCHC 32.8 g/dL (31.0-37.0); MCV 93.4 fL (80.0-100.0); MEAN PLATELET VOLUME 10.3 fL (7.4-10.4); MONOCYTES 6.4 % (2-11); NEUTROPHILS 82.6 % (40-80); PLATELET COUNT 117 10x3/uL (130-400); RBC 3.33 10x6/uL (4.20-6.10); RDW 13.1 % (11.5-14.5)
[2019-10-30 05:06] LABS: ANION GAP 9.3 mmol/L (8-16); CALCIUM 7.9 mg/dL (8.5-10.1); CARBON DIOXIDE 27.3 mmol/L (21.0-32.0); CREATININE - SERUM 1.4 mg/dL (0.6-1.3); POTASSIUM - SERUM 4.6 mmol/L (3.5-5.1)
--- NOTE | 2019-10-30 05:12 | NUR ---
PT C/O OF CHEST PAIN EARLIER IN THE NIGHT. STATED THAT THE PRN TRAMADOL HELPED. NO FURTHER VOICED C/O OR CONCERNS. WILL CTM.
[2019-10-30 08:44] VITALS: BP 122/57
--- NOTE | 2019-10-30 10:09 | NUR ---
UP AMBULATING HALLWAY WITH PT ASSIST.
--- NOTE | 2019-10-30 11:39 | NUR ---
IV RESTARTED TO RIGHT FA WITH 22 GAUGE CATH BY JUDSON MEEKS AND FLUSHED WITH NS. LINE IS PATENT.
[2019-10-30 11:41] VITALS: BP 126/68
--- NOTE | 2019-10-30 15:14 | NUR ---
URINE SPECIMEN COLLECTED AND TAKEN TO LAB.
[2019-10-30 15:24] VITALS: BP 161/81
[2019-10-30 15:44] LABS: BILIRUBIN NEGATIVE (NEGATIVE); GLUCOSE NEGATIVE (NEGATIVE); KETONE NEGATIVE (NEGATIVE); NITRITE NEGATIVE (NEGATIVE); SPECIFIC GRAVITY 1.015 (1.005-1.020); UROBILINOGEN NORMAL (NORMAL)
--- NOTE | 2019-10-30 19:35 | NUR ---
REPORT RECEIVED. BEDSIDE SHIFT REPORT COMPLETE. PT UP IN BED TAKING ON THE PHONE. RR EVEN AND UNLABORED. DENIES NEEDS AT THIS TIME. NO DISTRESS OBSERVED. CALL LIGHT IN REACH. WILL CTM.
[2019-10-30 20:30] VITALS: BP 122/63
[2019-10-31] VITALS (7 sets, daily range): BP systolic 125–169; BP diastolic 65–94
--- NOTE | 2019-10-31 09:24 | OP ---
PATIENT NAME: CLARISSA GALLEGO MEDICAL RECORD: [id number] :30 LOCATION:D.M2 D.2121 ADMISSION DATE:10/28/19 SURGEON: HALEY SHAY MD DATE OF OPERATION: 10/28/2019 PROCEDURE: Left heart catheterization, selective coronary angiography, right femoral artery approach. CATHETERS: A 5-Fijian sheath, 5/4 left and right Jony, 5/4 pig. The procedure was well tolerated. PTCA stenting of the circumflex. FINDINGS: Left ventriculography in 30-degree TEJADA view, mild global hypokinesis. Overall, LV function appears at be preserved at 50%. CORONARY ANATOMY: LEFT MAIN: Left main is free of disease. LAD: Has a hazy 80% stenosis, very discrete in this proximal portion, has one large diagonal that has a 90% proximal stenosis. CIRCUMFLEX: Large circumflex appears to be infarct related artery, basically subtotaled MARINA 2 flow distally. RIGHT CORONARY ARTERY: Dominant artery, gives rise to PDA, free of disease. PLAN: Intervention, circumflex on an urgent basis. DESCRIPTION OF PROCEDURE: A 5-Fijian sheath was exchanged for a 6-Fijian sheath. XB LAD guiding catheter provided excellent guide catheter support followed by a 300 cm Whisper wire. Predeployment balloon was a 2.5 x 15 mm [place], which actually showed good improvement in distal flow and still with significant residual. Next, a 3.0 x 15 mm [place] up to 16 atmospheres for 45 seconds. Final angiography shows excellent resolution of a subtotal 90% plus stenosis, no significant residual. MARINA flow was 3 at the end of procedure. Heparin and Integrilin was used during the case. The patient is obviously still critically ill with acute myocardial infarction, status post V-tach, V-fib cardioversion, transfer to the ICU in critical, but stable condition. I have discussed in detail with the family. TRANSINT:[id number] Voice Confirmation ID: [id number] DOCUMENT ID: [id number] HALEY SHAY MD at 0924 CC: [id number] DICTATION DATE: 10/28/19 0300 DIE MAKER ELECTRONIC: 10/28/19 1321 ADM IN [place] [address] [place] [address]
--- NOTE | 2019-10-31 14:25 | MORECARE ---
CASE MANAGEMENT DISCHARGE SUMMARY PATIENT: CLARISSA GALLEGO UNIT: [id number] ADM DATE: 10/28/19 AGE: 89 : [birth year] SEX: M ROOM/BED: D.2121 AUTHOR: MODESTA JONES PHYSICIAN: REFERRING PHYSICIAN: HALEY SHAY MD DATE OF SERVICE: 10/31/19 Discharge Plan Patient Name: CLARISSA GALLEGO [facility] [facility] 1930 Planned Disposition: Home with Home Health Anticipated Discharge Date: Discharge Date: Expected LOS: Initial Reviewer: [email or web address] Initial Review Date: 10/28/2019 Generated: 10/31/19 3:24 pm DCPIA - Discharge Planning Initial Assessment Updated by [email or web address]: Iliana Luna on 10/31/19 2:18 pm * Is the patient Alert and Oriented? Yes * How many steps to enter\exit or inside your home? 0/0 * PCP [place] * Pharmacy [facility] * Preadmission Environment Home with Family * ADLs Independent * Equipment Grab Bars Rolling Walker * List name and contact numbers for known caregivers / representatives who currently or will assist patient after discharge: Bianca Jett () [phone] Nayan (son) [phone] * Verbal permission to speak to the caregivers and representatives has been obtained from the patient. Yes * Community resources currently utilized None * Additional services required to return to the preadmission environment? Yes * Can the patient safely return to the preadmission environment? Yes * Has this patient been hospitalized within the prior 30 days at any hospital? No Patient Name: CLARISSA GALLEGO Page [id number] at 1425 All edits/amendments must be made on the electronic document DICTATION DATE: 10/31/19 142 CUSTODIAL MANAGER: CAREN 10/31/19 142 RPT#: [id number] DC DATE: STATUS: ADM IN [facility] [address] [place] [address] END OF REPORT
--- NOTE | 2019-10-31 14:35 | MORECARE ---
CASE MANAGEMENT DISCHARGE SUMMARY PATIENT: CLARISSA GALLEGO UNIT: [id number] ADM DATE: 10/28/19 AGE: 89 : 30 SEX: M ROOM/BED: D.0889 AUTHOR: ROBERTDOC PHYSICIAN: REFERRING PHYSICIAN: HALEY SHAY MD DATE OF SERVICE: 10/31/19 Discharge Plan Patient Name: CLARISSA GALLEGO Facility: [facility]:[place] : 1930 Planned Disposition: Home with Home Health Anticipated Discharge Date: Discharge Date: Expected LOS: Initial Reviewer: [email or web address] Initial Review Date: 10/28/2019 Generated: 10/31/19 3:35 pm Comments DCP- Discharge Planning Updated by [email or web address]: Iliana Luna on 10/31/19 1:[address] Patient Name: CLARISSA GALLEGO Admission Status: ER Accout number: [id number] Admission Date: 10-28-2019 : 1930 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 CM educated patient on the CM role and verbal consent given by patient to complete assessment. CM verified patient's address, phone number, and emergency contact phone numbers. Patient lives at home with his Bianca Jett, and his emergency contact is his son Nayan [phone]. At discharge patient plans to return home and feels this is a safe discharge. CM discussed availability of home health, rehab services, and medical equipment. Pt is walking with his home rolling walker around the floor. Nursing states he is walking the floor about every hour. Patient states she may need HH. States he has used [facility] before. [facility] signed for [facility]. The patient is currently on 4 liters o2, CM anticipates home o2, but will evaluate a need for home and portable o2 on DC. Pt states he will let CM know DME if needed. Transportation provider at discharge will be Nayan . CM will continue to follow and will assist as needed with dc plans/needs. Flight Tower Dispatcher: Iliana Luna MSN,RN,CM DCPIA - Discharge Planning Initial Assessment Updated by [email or web address]: Iliana Luna on 10/31/19 2:18 pm * Is the patient Alert and Oriented? Yes * How many steps to enter\exit or inside your home? 0/0 * PCP salvadorean * [facility]acy [facility] * Preadmission Environment Home with Family * ADLs Independent * Equipment Grab Bars Rolling Walker * List name and contact numbers for known caregivers / representatives who currently or will assist patient after discharge: Bianca Jett () [phone] Nayan (son) [phone] * Verbal permission to speak to the caregivers and representatives has been obtained from the patient. Yes * Community resources currently utilized None * Additional services required to return to the preadmission environment? Yes * Can the patient safely return to the preadmission environment? Yes * Has this patient been hospitalized within the prior 30 days at any hospital? No Last DP export: 10/31/19 1:25 pm Patient Name: CLARISSA GALLEGO Page [phone] at 1435 All edits/amendments must be made on the electronic document DICTATION DATE: 10/31/19 1435 CONSTRUCTION MATERIALS TESTER: CAREN 10/31/19 1435 RPT#: [id number] MD DATE: STATUS: ADM IN [facility] [address] [place] [address] END OF REPORT
--- NOTE | 2019-10-31 14:42 | NUR ---
PATIENT HAS AMBULATED 3-4 TIMES TODAY WITH WALKER ACOMPANIED BY STAFF. PATIENT TOLERATED WELL AND IS EAGER TO WALK AND GET BETTER. PATIENT IS STABLE AND VSS. WILL CONTINUE TO MONITOR. SR UP X 2 BED IN LOW POSITION AND CALL LIGHT IN REACH.
--- NOTE | 2019-10-31 15:39 | MORECARE ---
CASE MANAGEMENT DISCHARGE SUMMARY PATIENT: CLARISSA GALLEGO UNIT: [id number] ADM DATE: 10/28/19 AGE: 89 : 30 SEX: M ROOM/BED: D.3859 AUTHOR: ROBERTDOC PHYSICIAN: REFERRING PHYSICIAN: HALEY SHAY MD DATE OF SERVICE: 10/31/19 Discharge Plan Patient Name: CLARISSA GALLEGO Facility: [facility]:[place] : 1930 Planned Disposition: Home with Home Health Anticipated Discharge Date: Discharge Date: Expected LOS: Initial Reviewer: [email or web address] Initial Review Date: 10/28/2019 Generated: 10/31/19 4:39 pm Comments DCP- Discharge Planning Updated by [id number]: Iliana Luna on 10/31/19 1:[address] Patient Name: CLARISSA GALLEGO Admission Status: ER Accout number: [id number] Admission Date: 10-28-2019 : 1930 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 CM educated patient on the CM role and verbal consent given by patient to complete assessment. CM verified patient's address, phone number, and emergency contact phone numbers. Patient lives at home with his Bianca Jett, and his emergency contact is his son Nayan [phone]. At discharge patient plans to return home and feels this is a safe discharge. CM discussed availability of home health, rehab services, and medical equipment. Pt is walking with his home rolling walker around the floor. Nursing states he is walking the floor about every hour. Patient states she may need HH. States he has used [facility] before. [facility] signed [facility]. The patient is currently on 4 liters o2, CM anticipates home o2, but will evaluate a need for home and portable o2 on DC. Pt states he will let CM know DME if needed. Transportation provider at discharge will be Nayan . CM will continue to follow and will assist as needed with dc plans/needs. Director Mba: Iliana Luna MSN,RN,CM DCPIA - Discharge Planning Initial Assessment Updated by [email or web address]: Iliana Luna on 10/31/19 2:18 pm * Is the patient Alert and Oriented? Yes * How many steps to enter\exit or inside your home? 0/0 * PCP mongolian * [facility]acy [facility] * Preadmission Environment Home with Family * ADLs Independent * Equipment Grab Bars Rolling Walker * List name and contact numbers for known caregivers / representatives who currently or will assist patient after discharge: Bianca Jett () [phone] Nayan (son) [phone] * Verbal permission to speak to the caregivers and representatives has been obtained from the patient. Yes * Community resources currently utilized None * Additional services required to return to the preadmission environment? Yes * Can the patient safely return to the preadmission environment? Yes * Has this patient been hospitalized within the prior 30 days at any hospital? No External Providers External Provider: [facility] Next Contact Date: Service Request Date: Service Type: Resolution: Reviewer: Comments: Last DP export: 10/31/19 1:35 pm Patient Name: CLARISSA GALLEGO Page [phone] at 1539 All edits/amendments must be made on the electronic document DICTATION DATE: 10/31/191538 PEARL PELLER: CAREN 10/31/191538 RPT#: [id number] IN DATE: STATUS: ADM IN [facility] [address] [place] [address] END OF REPORT
--- NOTE | 2019-10-31 19:14 | NUR ---
RECEIVED BEDSIDE REPORT. PATIENT IS ALERT AND ORIENTED, SITTING UP IN CHAIR. RESPIRATIONS ARE EVEN AND UNLABORED. NO S/S OF DISTRESS. NO C/OPAIN. CALL LIGHT WITHIN REACH. WILL CPOC.
[2019-11-01 04:23] VITALS: BP 135/74
[2019-11-01 06:46] LABS: ANION GAP 8.3 mmol/L (8-16); CALCIUM 8.6 mg/dL (8.5-10.1); CARBON DIOXIDE 33.2 mmol/L (21.0-32.0); CREATININE - SERUM 1.4 mg/dL (0.6-1.3); POTASSIUM - SERUM 4.5 mmol/L (3.5-5.1)
--- NOTE | 2019-11-01 07:10 | NUR ---
REPORT RECEIVED FROM SPECIAL EVENTS COORDINATOR AND PATIENT CARE ASUMED. PATIENT LAYING IN BED ON BACK AWAKE, ALERT AND ORIENTED X 4. PATIENT IS STABLE AND VSS. PATIENT DENIES ANY NEEDS OR PAIN. WILL CONTINUE WITH PLAN OF CARE. SR UP X 2 BED IN LOW POSITION AND CALL LIGHT IN REACH.
--- NOTE | 2019-11-01 08:30 | NUR ---
PATIENT IS STABLE AND VSS. PATIENT AMBULATED WITH WALKER ACCOMPANIED NURSING STAFF. PATIENT WALKIED 1 1/2 X AROUND UNIT WITH 02 AT 3 L/NC. PATIENT TOLERATED WELL AND DENIES ANY NEEDS OR PAIN. WILL CONTINUE TO MONITOR.
[2019-11-01 09:04] VITALS: BP 135/84
[2019-11-01 13:19] VITALS: BP 127/67
[2019-11-01 13:50] VITALS: Ht 182.9 cm; Wt 92.0 kg
--- NOTE | 2019-11-01 16:00 | NUR ---
OT NOTE: PT COMPLETED SIT TO STAND WITH SBA. PT COMPLETED SITTING BALANCE WITH SBA. PT C/O OF CHEST PAIN . NOTIFIED NURSING. [phone] THANK YOU,BASSAM ROQUE
[2019-11-01 16:56] VITALS: BP 145/67
--- NOTE | 2019-11-01 17:00 | NUR ---
PATIENT TO HAVE THORACENTSIS BY DR JACOB 11/02/2019. PER PART MAKER, PATIENT DOES NOT NEEDS TO BE NPO. REPORT WILL BE GIVEN TO CARBONATION EQUIPMENT OPERATOR.
--- NOTE | 2019-11-01 17:50 | NUR ---
PATIENT EATING SALAD AND CHOKED. PATIENT COUGHED MULTIPLE TIMES. PATIENT ABLE TO TALK AND 02 SAT 93%. PATIENT TRIED DRINKING WATER AND COUGHED MORE AND STATED HE DID NOT WANT TO TRY AND EAT OR DRINK ANYMORE. REPORTED TO DR LINARES ON UNIT. DR LINARES ORDERED THAT MODIFIED BARIUM SWALLOW BE DONE TOMORROW. RE-ORDERED AND REPORT WILL BE GIVEN TO GOLD MINER . PATIENT IS TALKING WITHOUT DIFFICULTY AND BREATHING EVEN AND NON LABORED. WILL CONTINUE TO MONITOR. SR UPX 2 BED IN LOW POSITION AND CALL LIGHT IN REACH.
--- NOTE | 2019-11-01 18:30 | NUR ---
CALLED TO PATIENT ROOM. PATIENT HAS COUGHED UP OR SPIT UP 10 CM BRIGHT RED BLOOD CLOT. PATIENT DENIES NAUSEA OR SOB. REPORTED TO DR LINARES. ORDER RECEIVED FOR STAT CT CHEST PE PROTOCOL WITH CALL REPORT. CALLED AND SPOKE WITH PATIENT FAMILY AND GAVE INFO.
[2019-11-01 20:17] VITALS: BP 154/66
--- NOTE | 2019-11-01 22:24 | NUR ---
RECEIVED CALL FROM DR. LINARES, ORDERS GIVEN ZOSYN 3.375 IV PIGGYBACK Q 6HR. MUCINEX 600 MG PO BID. BLOOD CULTURES X 1. ORDERS ENTERED.
[2019-11-02 00:24] VITALS: BP 156/68
[2019-11-02 05:11] VITALS: BP 137/69
[2019-11-02 06:18] LABS: INR 1.12 (0.85-1.17); PROTIME 14.3 SECONDS (11.6-15.0)
[2019-11-02 06:25] LABS: ANION GAP 6.2 mmol/L (8-16); CALCIUM 7.7 mg/dL (8.5-10.1); CARBON DIOXIDE 33.7 mmol/L (21.0-32.0); CREATININE - SERUM 1.4 mg/dL (0.6-1.3); POTASSIUM - SERUM 4.9 mmol/L (3.5-5.1)
[2019-11-02 07:02] LABS: BASOPHILS 0.1 % (0-2); EOSINOPHILS 0.1 % (0-7); HEMATOCRIT 30.8 % (42.0-54.0); HEMOGLOBIN 10.1 g/dL (13.5-17.5); IMMATURE GRANULOCYTES 1.9 % (0-5); LYMPHOCYTES 7.7 % (15-50); MCH 30.7 pg (26.0-34.0); MCHC 32.8 g/dL (31.0-37.0); MCV 93.6 fL (80.0-100.0); MEAN PLATELET VOLUME 10.9 fL (7.4-10.4); MONOCYTES 7.7 % (2-11); NEUTROPHILS 82.5 % (40-80); RBC 3.29 10x6/uL (4.20-6.10); RDW 12.8 % (11.5-14.5)
[2019-11-02 07:18] LABS: PLATELET COUNT 161 10x3/uL (130-400)
[2019-11-02 07:55] VITALS: BP 156/79
--- NOTE | 2019-11-02 09:23 | NUR ---
PT TAKEN FOR BARIUM SWALLOW VIA WC.
--- NOTE | 2019-11-02 12:18 | NUR ---
I have reviewed this patient and I concur with the Shift Assessment completed by the Licensed Practical Nurse today this shift.
[2019-11-02 12:37] VITALS: BP 128/65
--- NOTE | 2019-11-02 12:56 | NUR ---
Nutrition Follow-up: Noted pt with choking incident yesterday evening. ST eval and MBSS done with no s/s of aspiration. Spoke with pt this AM. He reports eating his breakfast without issue; acknowledges that he needs to take his time and sit up straight while eating, as well as take smaller bites. Diet: Cardiac Wt: 205.6# (11/01); 211.6# (10/27) Labs noted: Glu 128, Ca 7.7 Meds noted: Colace -Encourage PO intake and honor food preferences within diet restrictions. -Monitor wt. -RD following.
[2019-11-02 16:20] VITALS: BP 148/73
--- NOTE | 2019-11-02 17:50 | NUR ---
PT UP WALKING HALLWAY WITH WALKER WITH DAUGHTER.
--- NOTE | 2019-11-02 19:00 | NUR ---
RECEIVED BEDSIDE REPORT. PATIENT IS ALERT AND ORIENTED RESTING COMFORTABLY IN BED. RESPIRATIONS ARE EVEN AND UNLABORED. PATIENT REMAINS ON 3.5L NC. NO S/S OF DISTRESS. NO C/O PAIN. CALL LIGHT WITHIN REACH. WILL CPOC.
[2019-11-02 20:00] VITALS: BP 168/82
--- NOTE | 2019-11-02 21:00 | NUR ---
WALKING AROUND UNIT WITH ASSISTANCE FROM ASSET AVAILABILITY LEADER AND WALKER. PATIENT WAS ABLE TO MAKE TWO ROTATIONS AROUND UNIT.
--- NOTE | 2019-11-02 22:30 | NUR ---
PATIENT MADE TWO ROTATIONS AROUND UNIT WITH ASSISTANCE FROM AIR TANK ASSEMBLER AND A WALKER.
[2019-11-03] VITALS: BP 156/86
[2019-11-03 04:00] VITALS: BP 165/75
[2019-11-03 05:31] LABS: HEMATOCRIT 33.6 % (42.0-54.0); HEMOGLOBIN 11.2 g/dL (13.5-17.5); MCH 30.8 pg (26.0-34.0); MCHC 33.3 g/dL (31.0-37.0); MCV 92.3 fL (80.0-100.0); RBC 3.64 10x6/uL (4.20-6.10); WBC 8.5 10x3/uL (4.8-10.8)
[2019-11-03 05:37] LABS: PLATELET COUNT 213 10x3/uL (130-400)
[2019-11-03 05:58] LABS: ANION GAP 7.1 mmol/L (8-16); CALCIUM 8.4 mg/dL (8.5-10.1); CARBON DIOXIDE 33.6 mmol/L (21.0-32.0); CREATININE - SERUM 1.3 mg/dL (0.6-1.3); POTASSIUM - SERUM 4.7 mmol/L (3.5-5.1)
[2019-11-03 09:00] VITALS: BP 183/89
[2019-11-03 12:00] VITALS: BP 139/66
--- NOTE | 2019-11-03 13:04 | NUR ---
RIGHT FA 20G IV INFILTRATED DC'D WITH CATH INTACT. INSERTED 20G RIGHT FA IV ON SECOND ATTEMPT.
--- NOTE | 2019-11-03 13:23 | NUR ---
I have reviewed this patient and I concur with the Shift Assessment completed by the Licensed Practical Nurse today this shift.
[2019-11-03 16:00] VITALS: BP 129/70
--- NOTE | 2019-11-03 19:07 | NUR ---
RECEIVED BEDSIDE REPORT. PATIENT IS ALERT AND ORIENTED, RESTING COMFORTABLY IN BED. RESPIRATIONS ARE EVEN AND UNLABORED. NO S/S OF DISTRESS. NO C/O PAIN. CALL LIGHT WITHIN REACH. WILL CPOC.
[2019-11-03 20:00] VITALS: BP 187/85
--- NOTE | 2019-11-03 20:45 | NUR ---
PATIENT MADE TWO ROTATIONS AROUND UNIT WITHOUT THE USE OF O2. PATIENT STATS ABOVE 90%. PATIENT NEEDED TO USE WALKER. NO S/S OF DISTRESS. NO C/OPAIN. CALL LIGHT WITHIN REACH. WILL CPOC.
[2019-11-04] VITALS: BP 160/77
[2019-11-04 04:00] VITALS: BP 175/88
[2019-11-04 13:04] VITALS: BP 129/69
--- NOTE | 2019-11-04 14:17 | NUR ---
PT RECEIVED SHOWER WITH HELP OF COURT RECORDER AND COMPLETE LINEN CHANGE DONE.
[2019-11-04 17:40] VITALS: BP 155/76
[2019-11-04 18:15] VITALS: BP 162/77
--- NOTE | 2019-11-04 19:17 | NUR ---
I have reviewed this patient and I concur with the Shift Assessment completed by the Licensed Practical Nurse today this shift.
--- NOTE | 2019-11-04 20:08 | NUR ---
REPORT AND INITIAL ROUNDS COMPLETED. PT RESTING WITH NO DISTRESS. CPOC.
[2019-11-04 20:40] VITALS: BP 150/69
[2019-11-05 01:13] VITALS: BP 162/106
--- NOTE | 2019-11-05 03:52 | NUR ---
PT SPENT THE FIRST PART OF THE NIGHT IN HIS RECLINER AND THEN WENT TO HIS BED ABOUT 1AM. HE IS RESTLESS AND HAVING TROUBLE SLEEPING. IVF INFUSING AT KVO. STILL HAVING DISCOMFORT FROM HIS FRACTURED RIBS/COUGHING/MOVEMENT.
[2019-11-05 04:42] VITALS: BP 175/64
--- NOTE | 2019-11-05 07:43 | NUR ---
PT AWAKE AND ORIENTED, SITTING IN CHAIR BESIDE BED. SON AT BEDIDE. NO COMPLAINTS OR CONCERNS THIS AM. CL IN REACH, SRX2,
[2019-11-05 08:00] VITALS: BP 156/83
--- NOTE | 2019-11-05 10:39 | NUR ---
PT AWAKE AND ORIENTED, SITTIN IN RECLINER BESIDE BED. NO COMPLAINTS OR CONCERNS AT THIS TIME. ASSISTED TO BTHROOM AND BACK. NO FAMIL AT BEDSISDE
[2019-11-05 12:00] VITALS: BP 150/70
--- NOTE | 2019-11-05 14:41 | NUR ---
I have reviewed this patient and I concur with the Shift Assessment completed by the Licensed Practical Nurse today this shift.
[2019-11-05 16:00] VITALS: BP 161/72
[2019-11-05 20:00] VITALS: BP 105/87
--- NOTE | 2019-11-05 22:01 | NUR ---
INITIAL ROUNDS COMPLETED AT 1915 HRS. PT SITTING UP IN THE RECLINER. NO DISTRESS NOTED. ASSESSMENT COMPLETED AT 1950 HRS. VSS. ALERT AND ORIENTED TO PERSON,PLACE AND TIME. REID. IV TO RFA SL. SR PER CM HR 71. LUNGS DIMINISHED IN BASES BILAT. BRUISES NOTED TO BILAT ARMS. PALPABLE PERIPHERAL PULSES. PM MEDS GIVEN PER ORDERS. PT CURRENTLY RESTING WITH EYES CLOSED. RESP EVEN AND REGULAR. SR UP X1,CALL LIGHT WITHIN REACH.
--- NOTE | 2019-11-05 23:37 | NUR ---
PT AWAKE; DENIES ANY DISCOMFORT. CALL LIGHT WITHIN REACH.
[2019-11-06] VITALS: BP 110/83
--- NOTE | 2019-11-06 01:33 | NUR ---
PT RESTING WITH EYES CLOSED. RESP EVEN AND REGULAR. CALL LIGHT WITHIN REACH.
[2019-11-06 04:00] VITALS: BP 116/78
--- NOTE | 2019-11-06 04:09 | NUR ---
PT SITTING IN RECLINER. DENIES ANY DISCOMFORT. CALL LIGHT WITHIN REACH.
--- NOTE | 2019-11-06 06:15 | NUR ---
VSS THROUGHOUT NIGHT. SR PER CM. PT DENIED ANY DISCOMFORT. NEEDS MET; WILL CONTINUE TO MONITOR.
--- NOTE | 2019-11-06 07:27 | NUR ---
PT AWAKE AND ORIENTED, UP WALKING AROUND ROOM. STATES HE'S VERY HOPEFUL TO GO HOME TODAY AND WANTS ME TO KEEP HIM UPDATED. WILL OBLIGE. NO COMPLAINTS OR CONCERNS STATED AT THIST ESTELA. CL IN REACH, SRX2.
--- NOTE | 2019-11-06 09:04 | NUR ---
PT AWAKE AND ORIENTED, TOOK MEDICATIONS WITHOUT DIFFICULTY. NO COMPLAITNS OR CONCERNS THIS AM. WANTING TO KNOW WHEN HE CAN D/C. WILL KEEP PT UPDATED NEW ARRANGMENTS ARE MADE. CL IN REACH, SRX2.
[2019-11-06] MEDS ORDERED: LOPRESSOR25 MG PO (09:36)
[2019-11-06] MEDS ORDERED: LIPITOR20 MG PO (09:37)
[2019-11-06] MEDS ORDERED: ASPIRIN81 MG PO (09:37)
[2019-11-06] MEDS ORDERED: PLAVIX75 MG PO (09:37)
[2019-11-06 09:39] VITALS: BP 174/83
--- NOTE | 2019-11-06 10:11 | MORECARE ---
CASE MANAGEMENT DISCHARGE SUMMARY PATIENT: CLARISSA GALLEGO UNIT: [id number] ADM DATE: 10/28/19 AGE: 89 : 30 SEX: M ROOM/BED: D.8933 AUTHOR: ROBERTDOC PHYSICIAN: REFERRING PHYSICIAN: HALEY SHAY MD DATE OF SERVICE: 11/06/19 Discharge Plan Patient Name: CLARISSA GALLEGO Facility: [facility]:[place] : 1930 Planned Disposition: Home with Home Health Anticipated Discharge Date: Discharge Date: Expected LOS: Initial Reviewer: [email or web address] Initial Review Date: 10/28/2019 Generated: 11/06/19 11:10 am DCP- Discharge Planning Updated by [email or web address]: Iliana Luna on 10/31/19 1:[address] Patient Name: CLARISSA GALLEGO Admission Status: ER Accout number: [id number] Admission Date: 10-28-2019 : 1930 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 CM educated patient on the CM role and verbal consent given by patient to complete assessment. CM verified patient's address, phone number, and emergency contact phone numbers. Patient lives at home with his Bianca Jett, and his emergency contact is his son Nayan [phone]. At discharge patient plans to return home and feels this is a safe discharge. CM discussed availability of home health, rehab services, and medical equipment. Pt is walking with his home rolling walker around the floor. Nursing states he is walking the floor about every hour. Patient states she may need HH. States he has used [facility] before. [facility] signed [facility]. The patient is currently on 4 liters o2, CM anticipates home o2, but will evaluate a need for home and portable o2 on DC. Pt states he will let CM know DME if needed. Transportation provider at discharge will be Nayan . CM will continue to follow and will assist as needed with dc plans/needs. Adjunct Communications Faculty Member: Iliana Luna MSN,RN,CM DCPIA - Discharge Planning Initial Assessment Updated by [email or web address]: Iliana Luna on 10/31/19 2:18 pm * Is the patient Alert and Oriented? Yes * How many steps to enter\exit or inside your home? 0/0 * PCP macedonian * [facility]acy [facility] * Preadmission Environment Home with Family * ADLs Independent * Equipment Grab Bars Rolling Walker * List name and contact numbers for known caregivers / representatives who currently or will assist patient after discharge: Bianca Jett () [phone] Nayan (son) [phone] * Verbal permission to speak to the caregivers and representatives has been obtained from the patient. Yes * Community resources currently utilized None * Additional services required to return to the preadmission environment? Yes * Can the patient safely return to the preadmission environment? Yes * Has this patient been hospitalized within the prior 30 days at any hospital? No External Providers External Provider: Tete Rodriguez Contact Date: Service Request Date: Service Type: Resolution: Reviewer: Comments: Last DP export: 10/31/19 2:39 pm Patient Name: CLARISSA GALLEGO Page [phone] at 1011 All edits/amendments must be made on the electronic document DICTATION DATE: 11/06/19 1010 TOOL CRIB MANAGER: CAREN 11/06/19 1010 RPT#: [id number] DC DATE: STATUS: ADM IN [facility] [address] [place] [address] END OF REPORT
--- NOTE | 2019-11-06 10:17 | MORECARE ---
CASE MANAGEMENT DISCHARGE SUMMARY PATIENT: CLARISSA GALLEGO UNIT: [id number] ADM DATE: 10/28/19 AGE: 89 : 30 SEX: M ROOM/BED: D.2121 AUTHOR: MODESTA JONES PHYSICIAN: REFERRING PHYSICIAN: HALEY SHAY MD DATE OF SERVICE: 11/06/19 Discharge Plan Patient Name: CLARISSA GALLEGO Facility: [facility]:[place] : 1930 Planned Disposition: Home with Home Health Anticipated Discharge Date: Discharge Date: Expected LOS: Initial Reviewer: [email or web address] Initial Review Date: 10/28/2019 Generated: 11/06/19 11:17 am Comments DCP- Discharge Planning Updated by [id number]: Iliana Luna on 11/06/19 9:[address] Patient Name: CLARISSA GALLEGO Encounter No: [id number] : 1930 Primary Insurance: MEDICARE A & B Anticipated DC Date: Planned Disposition: Home with Home Health External Planned Provider: : DCP follow-up note: CM met with pt to discuss plan pending todays discharge. Pt continues to have dyspnea, a walk test was ordered. Pt room air saturation is 85%. CM called [place] from [facility] at [phone] who will bringing oxygen to patient. CM called [facility] at [phone] and spoke with answering service to set up services. Patient will be seen within the next couple of days. CM faxed clinicals to [facility], and [facility]. Patient and family in agreement with discharge plan. No changes to plan. DC IMM delivered, explained, signed by the patient, and placed in his chart. Signed form also left with patient. Case management will follow and assist as needed. 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 CM educated patient on the CM role and verbal consent given by patient to complete assessment. CM verified patient's address, phone number, and emergency contact phone numbers. Patient lives at home with his Bianca Jett, and his emergency contact is his son Nayan [phone]. At discharge patient plans to return home and feels this is a safe discharge. CM discussed availability of home health, rehab services, and medical equipment. Pt is walking with his home rolling walker around the floor. Nursing states he is walking the floor about every hour. Patient states she may need HH. States he has used [facility]. [facility] signed for [facility]. The patient is currently on 4 liters o2, CM anticipates home o2, but will evaluate a need for home and portable o2 on DC. Pt states he will let CM know DME if needed. Transportation provider at discharge will be Nayan . CM will continue to follow and will assist as needed with dc plans/needs. Compensation Vice President: Iliana Luna MSN,RN,CM DCPIA - Discharge Planning Initial Assessment Updated by [email or web address]: Iliana Luna on 10/31/19 2:18 pm * Is the patient Alert and Oriented? Yes * How many steps to enter\exit or inside your home? 0/0 * PCP korean * [facility]acy [facility] * Preadmission Environment Home with Family * ADLs Independent * Equipment Grab Bars Rolling Walker * List name and contact numbers for known caregivers / representatives who currently or will assist patient after discharge: Bianca Jett () [phone] Nayan (son) [phone] * Verbal permission to speak to the caregivers and representatives has been obtained from the patient. Yes * Community resources currently utilized None * Additional services required to return to the preadmission environment? Yes * Can the patient safely return to the preadmission environment? Yes * Has this patient been hospitalized within the prior 30 days at any hospital? No Coverage Notice Reviewer: [id number] - Iliana Luna Notice Issued Date-Time: 11/06/2019 9:30 Notice Type: IM Discharge Notice Notice Delivered To: Patient Relationship to Patient: Bleacher [employer] Name: Delivery Method: - Namita Days: Prior Verbal Notification: Recipient Understood Notice: Recipient Signature: Med Rec Note Co-signed by Attending: Coverage Notice Comment: Last DP export: 11/06/19 9:11 a Patient Name: CLARISSA GALLEGO Page 27111 at 1017 All edits/amendments must be made on the electronic document DICTATION DATE: 11/06/19 1017 IT INFRASTRUCTURE ARCHITECT: CAREN 11/06/19 1017 RPT#: [id number] DC DATE: STATUS: ADM IN [facility] [address] [place] [address] END OF REPORT
--- NOTE | 2019-11-06 12:34 | NUR ---
PT ESCORTED VIA WHEELCHAIR TO POV, SON DRIVING.
--- NOTE | 2019-11-07 08:57 | MORECARE ---
CASE MANAGEMENT DISCHARGE SUMMARY PATIENT: CLARISSA GALLEGO UNIT: [id number] ADM DATE: 10/28/19 AGE: 89 : 30 SEX: M ROOM/BED: D.2126 AUTHOR: MODESTA JONES PHYSICIAN: REFERRING PHYSICIAN: HALEY SHAY MD DATE OF SERVICE: 11/07/19 Discharge Plan Patient Name: CLARISSA GALLEGO Facility: [facility]:[place] : 1930 Planned Disposition: Home with Home Health Anticipated Discharge Date: Discharge Date: 11/06/2019 Expected LOS: Initial Reviewer: [email or web address] Initial Review Date: 10/28/2019 Generated: 11/07/19 9:57 am Comments DCP- Discharge Planning Updated by [email or web address]: Iliana Luna on 11/06/19 9:[address] Patient Name: CLARISSA GALLEGO Encounter No: [id number] : 1930 Primary Insurance: MEDICARE A & B Anticipated DC Date: Planned Disposition: Home with Home Health External Planned Provider: : DCP follow-up note: CM met with pt to discuss plan pending todays discharge. Pt continues to have dyspnea, a walk test was ordered. Pt room air saturation is 85%. CM called [place] from [facility] [place] at [phone] who will bringing oxygen to patient. CM called [facility] at [phone] and spoke with [facility] service to set up services. Patient will be seen within the next couple of days. CM faxed clinicals to [facility], and [facility]. Patient and family in agreement with discharge plan. No changes to plan. DC IMM delivered, explained, signed by the patient, and placed in his chart. Signed form also left with patient. Case management will follow and assist as needed. Iliana Luna MSN,RN,CM DCP- Discharge Planning Updated by [email or web address]: Iliana Luna on 10/31/19 1:[address] Patient Name: CLARISSA GALLEGO Admission Status: ER Accout number: [id number] Admission Date: 10-28-2019 : 1930 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 CM educated patient on the CM role and verbal consent given by patient to complete assessment. CM verified patient's address, phone number, and emergency contact phone numbers. Patient lives at home with his Bianca Jett, and his emergency contact is his son Nayan [phone]. At discharge patient plans to return home and feels this is a safe discharge. CM discussed availability of home health, rehab services, and medical equipment. Pt is walking with his home rolling walker around the floor. Nursing states he is walking the floor about every hour. Patient states she may need HH. States he has used [facility] before. KALA signed for [facility]. The patient is currently on 4 liters o2, CM anticipates home o2, but will evaluate a need for home and portable o2 on DC. Pt states he will let CM know DME if needed. Transportation provider at discharge will be Nayan . CM will continue to follow and will assist as needed with dc plans/needs. Workers' Compensation Mediator: Iliana Luna MSN,RN,CM DCPIA - Discharge Planning Initial Assessment Updated by [email or web address]: Iliana Luna on 10/31/19 2:18 pm * Is the patient Alert and Oriented? Yes * How many steps to enter\exit or inside your home? 0/0 * PCP [place] * Pharmacy [facility] * Preadmission Environment Home with Family * ADLs Independent * Equipment Grab Bars Rolling Walker * List name and contact numbers for known caregivers / representatives who currently or will assist patient after discharge: Bianca Jett () [phone] Nayan (son) [phone] * Verbal permission to speak to the caregivers and representatives has been obtained from the patient. Yes * Community resources currently utilized None * Additional services required to return to the preadmission environment? Yes * Can the patient safely return to the preadmission environment? Yes * Has this patient been hospitalized within the prior 30 days at any hospital? No Coverage Notice Reviewer: [email or web address] - Iliana Luna Notice Issued Date-Time: 11/06/2019 9:30 Notice Type: IM Discharge Notice Notice Delivered To: Patient Relationship to Patient: Supervisor/Port Director Name: Delivery Method: HAND - Hand Delivered Namita Days: Prior Verbal Notification: Recipient Understood Notice: Yes Recipient Signature: Yes Med Rec Note Co-signed by Attending: Coverage Notice Comment: DC IMM delivered, explained, signed by the patient, and placed in his chart. Signed form also left with patient. Reviewer: [id number] Dorys Luna Notice Issued Date-Time: 11/06/2019 9:30 Notice Type: Patient Choice Letter Notice Delivered To: Patient Relationship to Patient: Supervisor/Port Director Name: Delivery Method: HAND - Hand Delivered Namita Days: Prior Verbal Notification: Recipient Understood Notice: Yes Recipient Signature: Yes Med Rec Note Co-signed by Attending: Coverage Notice Comment: choice signed for lisa Camarena DP export: 11/06/19 9:17 a Patient Name: CLARISSA GALLEGO Page [phone] at 0857 All edits/amendments must be made on the electronic document DICTATION DATE: 11/07/19 0857 POLICE ACADEMY PROGRAM COORDINATOR: CAREN 11/07/19 0857 RPT#: [id number] DC DATE:11/06/19 STATUS: DIS IN [facility] [address] [place] [address] END OF REPORT
--- NOTE | 2019-11-08 15:03 | DS ---
PATIENT:CLARISSA GALLEGO :[birth year] MEDICAL RECORD: [id number] DISCHARGE SUMMARY ADMISSION DATE: 10/28/19 DISCHARGE DATE: 11/06/19 PROBLEM LIST: 1. Acute ST elevation myocardial infarction. 2. Cardiac arrest secondary to #1. 3. Acute rib fracture secondary to #2. 4. Aspiration pneumonia secondary to aspiration in the process of #2. PROCEDURES PERFORMED: 1. Cardiac angiography. 2. 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 BRIEF HISTORY AND HOSPITAL COURSE: An 89-year-old gentleman admitted with acute myocardial infarction complicated by cardiac arrest with ventricular tachycardia requiring CPR, cardioversion, had emergency intervention developed acute rib fracture as well as aspiration pneumonitis secondary to a code process; however, again progressed fairly rapid in the ICU floor, has been ambulating with PT, received full course of IV antibiotics, rib pain is much better controlled. Clearing chest x-ray and discharged to home in good condition. ACTIVITIES: As tolerated. DIET: AHA diet with 125 to 150 grams protein every day. Activity as tolerated. We will plan for referral to outpatient cardiac rehab as well. Discharged home on beta blockade, statin therapy, as well as ARB. Follow up in the office in 2-3 weeks. TRANSINT:[id number] Voice Confirmation ID: [id number] DOCUMENT ID: [id number] HALEY SHAY MD at 1503 CC: [id number] DICTATION DATE: 11/06/19917 CARE TAKER: 11/07/19 0838 DIS IN 11/06/19 [id number] [place] [address]
== END 2019-11-06 12:34 | disposition home health service (06) | DRG 853 ==
LOC: D.ER 00:57 → D.M2 03:00 → D.CVICU 03:00 → D.M2 10-29 14:59
PROVIDERS: Emergency Medicine; Family Medicine; ADMIT Internal Medicine Interventional Cardiology; ATTEND Internal Medicine Interventional Cardiology
PROC: B2151ZZ Fluoroscopy of Left Heart using Low Osmolar Contrast (ICD-10-PCS; 2019-10-28)
PROC: 4A023N7 Measurement of Cardiac Sampling and Pressure, Left Heart, Percutaneous Approach (ICD-10-PCS; 2019-10-28)
PROC: 02703ZZ Dilation of Coronary Artery, One Artery, Percutaneous Approach (ICD-10-PCS; principal; 2019-10-28 01:52)
PROC: B2111ZZ Fluoroscopy of Multiple Coronary Arteries using Low Osmolar Contrast (ICD-10-PCS; 2019-10-28 01:52)
DX: A41.9 Sepsis, unspecified organism (principal); I21.09 ST elevation (STEMI) myocardial infarction involving other coronary artery of anterior wall; J69.0 Pneumonitis due to inhalation of food and vomit; G93.41 Metabolic encephalopathy; I50.21 Acute systolic (congestive) heart failure; S22.43XA Multiple fractures of ribs, bilateral, initial encounter for closed fracture; I47.2 Ventricular tachycardia; J98.11 Atelectasis; R04.2 Hemoptysis; I31.9 Disease of pericardium, unspecified; I10 Essential (primary) hypertension; M19.90 Unspecified osteoarthritis, unspecified site; K21.9 Gastro-esophageal reflux disease without esophagitis; I11.0 Hypertensive heart disease with heart failure; R53.81 Other malaise; I25.10 Atherosclerotic heart disease of native coronary artery without angina pectoris; G62.9 Polyneuropathy, unspecified; J30.9 Allergic rhinitis, unspecified

== ENCOUNTER 2019-11-19 18:25 | Observation (INO) | payer MEDICARE, OTHER ==
[~2019-11-19] VITALS: Ht 182.9 cm; Wt 87.3 kg
[~2019-11-19 18:25] MED LIST changes: +ASPIRIN81 MG PO; +LIPITOR20 MG PO; +LOPRESSOR25 MG PO; +PLAVIX75 MG PO
[2019-11-19 19:33] LABS: BASOPHILS 0.1 % (0-2); EOSINOPHILS 3.8 % (0-7); HEMATOCRIT 31.8 % (42.0-54.0); HEMOGLOBIN 10.6 g/dL (13.5-17.5); IMMATURE GRANULOCYTES 0.3 % (0-5); LYMPHOCYTES 6.7 % (15-50); MCH 30.8 pg (26.0-34.0); MCHC 33.3 g/dL (31.0-37.0); MCV 92.4 fL (80.0-100.0); MEAN PLATELET VOLUME 10.2 fL (7.4-10.4); NEUTROPHILS 80.1 % (40-80); RBC 3.44 10x6/uL (4.20-6.10); RDW 13.2 % (11.5-14.5); WBC 7.4 10x3/uL (4.8-10.8)
[2019-11-19 19:35] LABS: PLATELET COUNT 133 10x3/uL (130-400)
[2019-11-19 19:42] LABS: APTT 31.3 SECONDS (22.8-39.4); INR 1.22 (0.85-1.17); PROTIME 15.3 SECONDS (11.6-15.0)
[2019-11-19 19:44] LABS: CALC OSMOLALITY 274 mosm/kg (275-300); CALCIUM 8.3 mg/dL (8.5-10.1); CARBON DIOXIDE 30.3 mmol/L (21.0-32.0); CHLORIDE - SERUM 102 mmol/L (98-107); CREATININE - SERUM 1.3 mg/dL (0.6-1.3); GLUCOSE 120 mg/dL (74-106); POTASSIUM - SERUM 3.8 mmol/L (3.5-5.1); SODIUM 135 mmol/L (136-145); UREA NITROGEN 23 mg/dL (7-18); eGFR NON AFRICAN AMERICAN 55 mL/min (90-120)
[2019-11-19] MEDS ORDERED: ULTRAM50 MG PO (19:56)
[2019-11-19 19:58] VITALS: BP 121/59
[2019-11-19 20:03] LABS: ALBUMIN 2.7 g/dL (3.4-5.0); ALKALINE PHOSPHATASE 93 U/L (30-120); ALT (SGPT) 30 U/L (10-68); BILIRUBIN - TOTAL 0.58 mg/dL (0.2-1.3); CKMB 4.5 U/L (0.0-3.6); CREATINE KINASE 177 UL (21-232); PROTEIN - SERUM 6.2 g/dL (6.4-8.2)
[2019-11-19 20:21] LABS: MAGNESIUM - SERUM 2.2 mg/dL (1.8-2.4)
[2019-11-19 20:42] VITALS: BP 121/59
[2019-11-19 21:06] VITALS: BP 121/59
[2019-11-19 21:21] LABS: BILIRUBIN NEGATIVE (NEGATIVE); GLUCOSE NEGATIVE (NEGATIVE); KETONE NEGATIVE (NEGATIVE); NITRITE NEGATIVE (NEGATIVE); UROBILINOGEN NORMAL (NORMAL)
[2019-11-19 22:08] VITALS: BP 121/59
[2019-11-19 22:48] VITALS: BP 120/60
--- NOTE | 2019-11-19 23:58 | NUR ---
PT ARIVED VIA STRETCHER FORM ER. NO DISTRESS NOTED.
[2019-11-20] VITALS: BP 127/52
[2019-11-20] MEDS ORDERED: CATAPRES0.1 MG PO (00:21)
[2019-11-20] MEDS ORDERED: CEFUROXIME250 MG PO (00:22)
[2019-11-20 00:24] VITALS: BP 127/52; Ht 182.9 cm; Wt 87.3 kg
--- NOTE | 2019-11-20 00:42 | NUR ---
ADMISSION ASSESSMENT, HISTORY AND HOME MED LIST COMPLETED. PT STATES HE FEELS MUCH IMPROVED. VS. SR PER CM HR 67. O2 2LNC. LUNGS DIMINISHED IN BASES BILAT. REID. PALPABLE PERIPHERAL PULSES. FADING BRUISES NOTED TO L ARM AND CHEST. IV TO RFA WITH NS AT 75CC/HR. EXPLAINED RATIONALE FOR BED ALARM. PT STATED UNDERSTANDING. SR UP X2,CALL LIGHT WITHIN REACH AND BED ALRM ON.
--- NOTE | 2019-11-20 04:58 | NUR ---
PT AWAKE; DENIES ANY DISCOMFORT. SR UPX2, CALL LIGHT WITHIN REACH AND BED ALARM ON.
[2019-11-20 06:27] LABS: BASOPHILS 0.3 % (0-2); EOSINOPHILS 4.3 % (0-7); HEMATOCRIT 30.4 % (42.0-54.0); HEMOGLOBIN 9.7 g/dL (13.5-17.5); IMMATURE GRANULOCYTES 0.2 % (0-5); LYMPHOCYTES 11.7 % (15-50); MCHC 31.9 g/dL (31.0-37.0); MCV 94.1 fL (80.0-100.0); MEAN PLATELET VOLUME 10.2 fL (7.4-10.4); MONOCYTES 9.9 % (2-11); NEUTROPHILS 73.6 % (40-80); PLATELET COUNT 121 10x3/uL (130-400); RBC 3.23 10x6/uL (4.20-6.10); RDW 13.3 % (11.5-14.5); WBC 6.1 10x3/uL (4.8-10.8)
--- NOTE | 2019-11-20 06:32 | NUR ---
VSS THROUGHOUT NIGHT. SR PER CM. AFEBRILE SINCE ADMISSION. NEEDS MET; WILL CONTINUE TO MONITOR.
[2019-11-20 06:43] LABS: ANION GAP 10.6 mmol/L (8-16); CALCIUM 7.9 mg/dL (8.5-10.1); CARBON DIOXIDE 27.1 mmol/L (21.0-32.0); CHOL - HDL RATIO 2.2 ratio (2.3-4.9); CREATININE - SERUM 1.1 mg/dL (0.6-1.3); LDL-HDL RATIO 0.9 ratio (1.5-3.5); POTASSIUM - SERUM 3.7 mmol/L (3.5-5.1)
[2019-11-20 09:44] VITALS: BP 151/82
--- NOTE | 2019-11-20 14:25 | NUR ---
IV AND TELEMTRY DCD. DC PLANS GIVEN. UNDERSTANDING VOICED. ESCORTED TO CAR BY W/C.
--- NOTE | 2019-11-20 14:52 | HP ---
PATIENT: CLARISSA GALLEGO MEDICAL RECORD: [id number] ACCOUNT: [id number] LOCATION:[address] : [birth year] ADMISSION DATE: 11/19/19 PCP: GUERA STANFORD MD HISTORY AND PHYSICAL EXAMINATION DATE ASSIGNED TO OBSERVATION: 11/19/2019 CHIEF COMPLAINT: Fever, high blood pressure. HISTORY OF PRESENT ILLNESS: This is an 89-year-old white male who is a patient of Dr. Stanford. He was admitted earlier this month with chest pain. He was brought to the Emergency Department in code status. He had CPR, which fractured some ribs, and had cardioversion times 2. He was taken to the matlab developer emergently and had stents placed. He developed pneumonia, felt to be aspirational, he got 7 days of IV antibiotics and he was discharged home. He called me the morning of 11/19/2019, worried about pneumonia, he was complaining of fever, "running hot and cold", he had some left upper chest pain. I called him out some Ceftin. He took 1 dose later the evening of 11/19/2019 and he called back stating that his temperature was higher and his blood pressure was "200/110". I recommended he come to the Emergency Department where he was seen. There, his temperature was 99.7. All his blood pressures were normal at that time and he was feeling better, but with his age and with his recent history, he was assigned to observation. PAST MEDICAL HISTORY: He has a history of hypertension, peripheral neuropathy, osteoarthritis, chronic low back pain, and new diagnosis of coronary artery disease with [place] on 10/28/2019. PAST SURGICAL HISTORY: Back surgery times 2, stents placed by Dr. Torres emergency on 10/28/2019. ALLERGIES: REPORTED TO SHELLFISH AND HYDROCODONE. HOME MEDICATIONS: Now include Valsartan 160 mg twice a day, Plavix 75 mg once a day, atorvastatin 20 mg once a day, Lopressor 25 mg twice a day, clonidine 0.1 q.6 hours p.r.n. elevated blood pressure, aspirin 81 mg once a day, meloxicam 15 mg once a day, Lyrica 75 mg twice a day, tramadol 50 mg p.r.n. pain, vitamin C 500 once a day, folic acid 1 mg once a day, vitamin B once a day, and Prilosec 20 mg once a day. SOCIAL HISTORY: He is and retired. FAMILY HISTORY: Noncontributory. HABITS: No tobacco, alcohol or drugs. REVIEW OF SYSTEMS: GENERAL: No major weight changes. HEENT: No particular sinus or allergy problems. RESPIRATORY: No history of emphysema or COPD. He was diagnosed with most likely aspirational pneumonia and treated earlier this month for that. CARDIAC: See above history. GASTROINTESTINAL: No significant problems there, has occasional heartburn. GENITOURINARY: No significant problems there. MUSCULOSKELETAL: He has chronic low back pain and has had 2 back surgeries. HISTORY AND PHYSICAL [id number] CLARISSA GALLEGO NEUROLOGIC: No migraines or seizures. He does have neuropathy in his feet. PSYCHIATRIC: No history of depression or melancholia. PHYSICAL EXAMINATION: VITAL SIGNS: In the ER last night, his temperature was 99.7 max, pulse 68, respiratory rate 20, blood pressure 121/59. This morning, he has been afebrile. The highest temperature since he was brought to the hospital was the 99.7. His blood pressures have all been below 150 systolic. O2 sat has been normal. GENERAL: He is awake and alert. He does not appear his stated age. HEENT: Grossly within normal limits. NECK: Supple. No JVD or bruit. HEART: Regular rate and rhythm without murmur. LUNGS: Fairly clear. ABDOMEN: Soft, flat, nontender. EXTREMITIES: No edema. NEUROLOGIC: Intact. LABORATORY DATA: This morning CBC with a white count of 6100, hemoglobin 9.7, hematocrit 30.4, platelet counts a little low at 121. Basic metabolic panel is all normal except calcium a little low at 7.9, proBNP is 1851. Total cholesterol 89, LDL 37, HDL 40. Influenza A and B are both negative. RSV rapid test is negative. Group A strep is negative. Urinalysis is unremarkable. Lactic acid 0.6. His labs from last night in the ER reviewed and about the same. DIAGNOSTIC DATA: Chest x-ray done last night showed no active disease. Pulmonary vascularity was normal. Lungs were clear. ASSESSMENT: Fever, elevated blood pressure. MEDICAL DECISION MAKING: This is an 89-year-old who less than a month ago had a myocardial infarction and had CPR performed and cardioversion times 2 followed by aspiration pneumonia. PLAN: Plan is to monitor overnight with serial cardiac enzymes. Monitor blood pressure and temperature, and we will see how he is doing. TRANSINT:[id number] Voice Confirmation ID: [id number] DOCUMENT ID: [id number] LYNSEY JACKSON MD at 1452 CC: [id number] DICTATION DATE: 11/20/19 1324 SNACK FOODS MIXER OPERATOR: 11/20/19 1415 ADM IN [facility] [address] [id number]
== END 2019-11-20 14:26 | disposition home or self-care (01) ==
LOC: D.ER 18:25 → OBSVTIME 22:01 → D.M2 22:01
PROVIDERS: Emergency Medicine; Family Medicine; ADMIT Family Medicine; ATTEND Family Medicine
DX: R50.9 Fever, unspecified (principal); I10 Essential (primary) hypertension; I25.10 Atherosclerotic heart disease of native coronary artery without angina pectoris; M19.90 Unspecified osteoarthritis, unspecified site; G62.9 Polyneuropathy, unspecified; S22.49XD Multiple fractures of ribs, unspecified side, subsequent encounter for fracture with routine healing

== ENCOUNTER 2019-12-01 11:34 | Outpatient (CLI) | payer MEDICARE, OTHER ==
[~2019-12-01] VITALS: Ht 182.9 cm; Wt 84.8 kg
--- NOTE | ~2019-12-01 | HEMODYNAMI ---
PATIENT:CLARISSA GALLEGO MEDICAL RECORD: [id number] : [birth year] LOCATION:D.CAT ADMISSION DATE: 12/01/19 Generatedon:12/01/201914:00 Patient name: CLARISSA GALLEGO Patient #: [id number] SSN: [id number] : 1930 Date of study: 12/01/2019 Page: Of Hemodynamic Procedure Report Patient Data Patient Demographics Procedure consent was obtained First Name: CLARISSA Gender: Male Last Name: JULIÁN : 1930 [facility] Initial: J Age: 89 year(s) Patient #: [id number] Race: SSN: [id number] Additional ID: [id number] Contact details [address]: [address] [place] [address] [place] State: [place] City: [place] Zip code: [address] Past Medical History Allergies Allergen Reaction Date Comments Reported Other allergy 10/28/2019 IODINE Other allergy 12/01/2019 hydro, shellfish Admission Admission Data Admission Date: 12/01/2019 Admission Time: 11:34 Arrival Date: 12/01/2019 Arrival Time: 0:00 Admit Source: Other Insurance Payor: Medicare HIC #: [id number] Height (in.): 72 BSA: 2.1 (m2) Height (cm.): 182.88 BMI: 26.31 (kg/m2) Weight (lbs.): 194 Weight (kg.): 88 Lab Results Lab Result Date: 12/01/2019 Lab Result Time: 0:00 Biochemistry Name Units Result Min Max BUN mg/dl 23 --(----)-* 7 18 Creatinine mg/dl 1.1 --(--*-)-- 0.6 1.3 eGFR ml/min 67.22299 *-(----)-- 90 120 NONAFRICAN CBC Name Units Result Min Max Hematocrit % 36.2 *-(----)-- 42 54 Hemoglobin g/dl 12 *-(----)-- 13.5 17.5 Procedure Procedure Types Cath Procedure Diagnostic Procedure Sedation Charges Moderate Sedation up to 30 minutes PCI Procedure Coronary Stent Coronary Stent Initial Coronary Stent Initial x2 Hemochron ACT Test Procedure Description Procedure Date Procedure Date: 12/01/2019 Procedure Start Time: 13:16 Procedure End Time: 13:58 Procedure Staff Name Function Piotr Garcia MD Performing Physician Sabrina Dietz RT Shelf Drier Operator Charlene Camejo RN Nurse Marizol Mao RT Scrub Anna Delcid RT Monitor Procedure Data Cath Procedure Fluoroscopy Diagnostic fluoroscopy Total fluoroscopy Time: 9.6 time: 9.6 min min Diagnostic fluoroscopy Total fluoroscopy dose: 736 dose: 736 mGy mGy Contrast Material Contrast Material Type Amount (ml) Isovue 370 120 Entry Location Entry Primary Successful Side Size Upsize Upsize Entry Closure Succes sful Closure Location (Fr) 1 (Fr) 2 (Fr) Remarks Device Remarks Femoral Right 6 Fr Exoseal artery Short Estimated blood loss: 10 ml Procedure Complications No complications Procedure Medications Medication Administration Route Dosage Oxygen etCO2 Nasal cannula 2 l/min Lidocaine 2% added to field 20 Heparin Flush Bag added to field 2 bags (1000units/500ml NS) 0.9% NaCl I.V. 100 ml/hr Versed I.V. 1 mg Fentanyl I.V. 50 mcg Heparin Bolus I.V. 4000 units Versed I.V. 1 mg Fentanyl I.V. 50 mcg Vasotec 2.5 mg Versed I.V. 1 mg Versed I.V. 1 mg Hemodynamics Rest BSA: 2.1 (m2) HGB: 12 (g/dl) O2 Consumption: Estimated: 242.17 (ml/min) O2 Consu mption indexed: Estimated:115.32 (ml/min/m) Heart Rate: 76 (bpm) Snapshots Pre Cath Intra NCS Post Cath Vital Signs Time Heart Resp SPO2 etCO2 NIBP (mmHg) Rhythm Pain Sedation Rate (ipm) (%) (mmHg) Status Level (bpm) 13:05:33 74 18 95 0 188/98(149) NSR 0 (11) 10(A) , No pain 13:10:04 63 21 98 34.4 172/90(124) NSR 0 (11) 10(A) , No pain 13:14:32 63 22 97 0 168/92(122) NSR 0 (11) 10(A) , No pain 13:18:58 63 21 96 0 181/91(156) NSR 0 (11) 9(A) , No pain 13:23:29 64 19 95 0.7 158/91(106) NSR 0 (11) 9(A) , No pain 13:28:56 68 22 100 28.4 195/102(182) NSR 0 (11) 9(A) , No pain 13:33:37 71 24 100 36.6 202/101(150) NSR 0 (11) 9(A) , No pain 13:38:09 69 25 95 0 183/93(157) NSR 0 (11) 10(A) , No pain 13:42:42 67 24 96 0 184/93(153) NSR 0 (11) 10(A) , No pain 13:47:18 70 24 98 33.6 179/90(144) NSR 0 (11) 10(A) , No pain 13:51:46 71 16 99 33.6 174/95(113) NSR 0 (11) 10(A) , No pain 13:55:46 31.4 No Cuff NSR 0 (11) 10(A) , No pain Medications Time Medication Route Dose Verified Delivered Reason Notes Effectiveness by by 13:06:52 Oxygen etCO2 2 Piotr Emmaie used for Nasal l/min St Adriel Camejo RN procedure cannula 13:08:44 Versed I.V. 1 mg Piotr Buffie for sedation St Adriel Camejo RN, MD 13:08:49 Fentanyl I.V. 50 Piotr Buffie for sedation mcg [facility] Adriel Camejo RN, MD 13:12:46 Versed I.V. 1 mg Piotr Buffie for sedation St Adriel Camejo RN, MD 13:12:50 Fentanyl I.V. 50 Piotr Buffie for sedation mcg [facility] Adriel Camejo RN, MD 13:12:59 Lidocaine 2% added 20ml Piotr Saldaña for local to vial [facility] anesthetic field MD ELENA 13:13:06 Heparin Flush added 2 Piotr Piotr used for Bag to bags [facility] procedure (1000units/500ml field MD ELENA NS) 13:13:15 0.9% NaCl I.V. 100 Piotr Chang Per physician ml/hr St Adriel Camejo RN, MD 13:17:55 Heparin Bolus I.V. 4000 Piotr Buffie for verif ied units St Adriel Camejo RN anticoagulation with dr MD dennis 13:25:53 Versed I.V. 1 mg Piotr Chang for sedation St Adriel Camejo RN, MD 13:28:10 Vasotec IV 2.5 Piotr Chang Per physician mg St Adriel Camejo RN, MD 13:34:07 Versed I.V. 1 mg Piotr Chang for sedation St Adriel Camejo RN, MD Procedure Log Time Note 12:30:42 Arrival Date: 12/01/2019 12:00:00 AM 12:31:03 Admit Source: Other 12:31:06 Insurance Payor : Medicare 12:31:26 Patient Weight : 194 lbs 12:31:29 Patient Height : 72 inches 12:46:52 Procedure Status PCI. 12:46:54 Time tracking: Regular hours (M-F 7:00 - 5:00) 12:46:59 Plan of Care:Hemodynamics will remain stable., Cardiac rhythm will remain stable., Comfort level will be maintained., Respiratory function will remain adequate., Patient/ family verbilizes understanding of procedure., Procedure tolerated without complication., Recovers from procedure without complications.. 12:47:27 H&P Date Dictated: 11/23/2019 Within 30 days and on chart., H&P Addendum completed by physician on day of procedure. (MUST COMPLETE FOR ALL OUTPATIENTS). 12:51:33 Patient allergic to Other allergyhydro, shellfish 12:51:39 Was the patient premedicated? Yes 12:51:42 Is the patient allergic to Iodine/contrast media? No. 12:51:44 Is patient on blood thinner?Yes 12:51:48 ACC The patient was administered the following blood thiners within the last 24 hours: ACCAspirin, ACCPlavix 12:52:16 Snore? Yes 12:55:18 Sabrina Dietz RT(R) sent for patient. Start room use. 12:58:13 Informed consent obtained and on chart 12:59:48 Lab Result : BUN 23 mg/dl 12:59:48 Lab Result : Creatinine 1.1 mg/dl 12:59:48 Lab Result : eGFR NONAFRICAN 67.88796 ml/min 12:59:48 Lab Result : Hemoglobin 12 g/dl 12:59:48 Lab Result : Hematocrit 36.2 % 13:00:09 Procedure type changed to Cath procedure, Diagnostic procedure, Sedation Charges, Moderate Sedation up to 30 minutes, PCI procedure, Coronary Stent, Coronary Stent Initial, Coronary Stent Initial x2, Hemochron ACT Test 13:00:39 Patient received from Pre/Post Procedure Room to CCL 1 Alert and oriented. Tansferred to table in Supine position. 13:00:40 Warm blankets applied, and poonam hugger turned on for patient comfort. 13:00:40 Correct patient and procedure confirmed by team. 13:00:40 ECG and BP/O2 sat monitors applied to patient. 13:00:42 Pre-procedure instructions explained to patient. 13:00:43 Pre-op teaching completed and patient verbalized understanding. 13:00:45 Family in waiting room. 13:00:46 Patient NPO since Midnight. 13:01:01 Patient diabetic? No. 13:01:03 If diabetic: On Metformin? N/A 13:01:06 Is patient on blood thinner?Yes 13:01:09 ACC The patient was administered the following blood thiners within the last 24 hours: ACCPlavix 13:01:11 ----Pre-sedation anethsthesia assessment.---- 13:01:11 Previous problem with sedation/anesthesia? No ? 13:01:15 Sleep apnea? No 13:01:16 Deviated septum? No 13:01:17 Opens mouth fully? Yes 13:01:20 Sticks out tongue? Yes 13:01:22 Airway obstruction? No ? 13:01:25 Dentures? No ? 13:01:27 Patient pain scale 0/10 ?. 13:01:34 IV patent on arrival in left antecubital with 0.9% NaCl at [facility]. 13:01:41 Lab results completed and on chart. 13:01:44 Stress Test: no; N/A ? 13:01:48 Right groin area was prepped with chlora-prep and draped in sterile fashion 13:01:49 Alarms reviewed by R. N. 13:01:50 Sharps counted by scrub and verified by R.N. 13:01:53 Use device set Femoral Dx 13:01:54 ACIST Syringe (26321) opened to sterile field. 13:01:55 Bag Decanter (2002S) opened to sterile field. 13:01:56 Medline Cath Pack ([id number]) opened to sterile field. 13:01:57 ACIST Hand Control (76926) opened to sterile field. 13:01:58 ACIST Manifold (25068) opened to sterile field. 13:02:01 EMERALD Guide Wire (502-260) opened to sterile field. 13:02:03 Use device set [place] PCI 13:02:07 GUIDE 6FR EBU 3.5 catheter ([id number]) opened to sterile field. 13:02:08 WHISPER 300cm guide wire ([id number]) opened to sterile field. 13:02:10 INFLATOR Merit BasixCompak (VX4142) opened to sterile field. 13:02:19 Full Disclosure recording started 13:04:15 Vital chart was started 13:04:16 Baseline sample Acquired. 13:04:23 Rhythm: sinus rhythm 13:06:52 Oxygen 2 l/min etCO2 Nasal cannula was administered by Charlene Camejo RN; used for procedure; Verbal order read back and verified. 13:07:40 Risk of Mortality: 0.3 13:07:43 Risk of blood transfusion: 0.7 13:07:46 Risk of PORSHA: 5.2 13:07:51 --------ALL STOP TIME OUT------ 13:07:51 Final Timeout: patient, procedure, and site verified with staff and physician. All members of the team are in agreement. 13:07:54 Right groin site verified by team. 13:07:57 Fire Safety Assessment: A--An alcohol-based skin anteseptic being used preoperatively., C--Open oxygen or nitrous oxide is being used., D--An ESU, laser, or fiber-optic light is being used. 13:08:00 Physical assessment completed. ASA score P 2 - A patient with mild systemic disease as per Piotr Garcia MD. 13:08:05 2) 60-89 Mildly reduced kidney function, and other findings (as for stage 1) point to kidney disease. 13:08:08 Maximum allowable contrast dose (3.7 X eGFR X 0.75)186 ml. 13:08:13 Sedation plan: IV Moderate Sedation Medication:Versed, Fentanyl 13:08:30 Diagnostic Cath Status : Elective 13:08:44 Versed 1 mg I.V. was administered by Charlene Camejo RN; for sedation; Verbal order read back and verified. 13:08:49 Fentanyl 50 mcg I.V. was administered by Charlene Camejo RN; for sedation; Verbal order read back and verified. 13:12:46 Versed 1 mg I.V. was administered by Charlene Camejo RN; for sedation; Verbal order read back and verified. 13:12:50 Fentanyl 50 mcg I.V. was administered by Charlene Camejo RN; for sedation; Verbal order read back and verified. 13:12:59 Lidocaine 2% 20ml vial added to field was administered by Piotr Garcia MD; for local anesthetic; Verbal order read back and verified. 13:13:06 Heparin Flush Bag (1000units/500ml NS) 2 bags added to field was administered by Piotr Garcia MD; used for procedure; Verbal order read back and verified. 13:13:15 0.9% NaCl 100 ml/hr I.V. was administered by Charlene Camejo RN; Per physician; Verbal order read back and verified. 13:16:20 Procedure started. 13:16:25 Local anesthetic to right femoral artery with Lidocaine 2% by Piotr Garcia MD.INITIAL ACCESS ONLY 13:16:54 SHEATH 6FR Delaplane (UMA379) opened to sterile field. 13:17:00 A 6 Fr Short sheath was inserted into the Right Femoral artery 13:17:16 Proceeding to intervention. 13:17:29 6 Fr EBU 3.5 guide catheter was inserted over the wire 13:17:55 Heparin Bolus 4000 units I.V. was administered by Charlene Camejo RN; for anticoagulation; verified with dr dennis Verbal order read back and verified. 13:19:46 WHISPER 300 wire advanced. 13:21:39 Pre PCI Site: Andreafski mLAD has 80% stenosis. 13:21:49 Pre PCI Site: Andre[place]ski Diag1 has 90% stenosis. 13:22:56 Inflate balloon Inflation number: 1 A EMERGE OTW 3.0 x 15 balloon ([id number]) was prepped and advanced across the 1st Diag 90, then inflated to 8 DHRUV for 0:00 (min:sec) . 13:23:06 Inflation number: 2 The EMERGE OTW 3.0 x 15 balloon ([id number]) was reinflated across the 1st Diag , to 10 DHRUV for 0:00 (min:sec) . 13:23:49 Balloon removed over the wire. 13:25:53 Versed 1 mg I.V. was administered by Charlene Camejo RN; for sedation; Verbal order read back and verified. 13:26:09 Place stent Inflation Number: 3 A INTEGRITY RX 3.0 x 18 stent ([id number]) was prepped and advanced across the 1st Diag . The stent was deployed at 14 DHRUV for 0:00 (min:sec) . 13:27:03 Inflation number: 4 The stent balloon was then re-inflated across the 1st Diag to 4 DHRUV for 0:00 (min:sec) . 13:27:23 Stent catheter was removed intact over wire. 13:27:55 Wire redirected to LAD. 13:28:10 Vasotec 2.5 mg IV was administered by Charlene Camejo RN; Per physician; Verbal order read back and verified. 13:31:46 Place stent Inflation Number: 1 A INTEGRITY RX 3.0 x 09 stent ([id number]) was prepped and advanced across the Mid LAD 80. The stent was deployed at 14 DHRUV for 0:00 (min:sec) . 13:32:10 Stent catheter was removed intact over wire. 13:34:07 Versed 1 mg I.V. was administered by Charlene Camejo RN; for sedation; Verbal order read back and verified. 13:35:06 Place stent Inflation Number: 7 A INTEGRITY RX 3.0 x 15 stent ([id number]) was prepped and advanced across the 1st Diag . The stent was deployed at 14 DHRUV for 0:00 (min:sec) . 13:35:58 Stent catheter was removed intact over wire. 13:39:22 Inflation number: 6 The EMERGE OTW 3.0 x 15 balloon ([id number]) was reinflated across the 1st Diag , to 8 DHRUV for 0:00 (min:sec) . 13:40:07 Inflation number: 5 The EMERGE OTW 3.0 x 15 balloon ([id number]) was reinflated across the 1st Diag , to 4 DHRUV for 0:00 (min:sec) . 13:40:36 Stent catheter was removed intact over wire. 13:40:36 Wire removed. 13:40:37 Guide catheter removed. 13:40:42 EXOSEAL 6Fr (EX600) opened to sterile field. 13:41:36 Sheath removed intact; hemostasis achieved with Exoseal to the Right Femoral artery. 13:41:41 Fluoroscopy time 09.60 minutes. 13:41:44 Procedure ended.(Physican Out) 13:42:04 Flurop Dose total: 736 13:42:04 Fluoroscopy dose: 736 mGy 13:42:11 Dose Area Product 18192 mGy/cm. 13:42:15 Contrast amount:Isovue 370 120ml. 13:42:17 Maximum allowable dose exceeded? Yes. 13:47:09 Sharps counted by scrub and verified by R.N. 13:47:13 Post-op/insertion site Right Femoral artery dressed using a 4 x 4 and Tegaderm. 13:47:20 Post right femoral artery:stable, soft, clean and dry 13:47:21 Post Procedure Pulses reassessed and unchanged 13:47:24 Post procedure: right dorsailis pedis pulse 2+ Normal; easily identifiable; not easily obliterated. 13:47:27 Post-procedure physical assessment completed. ASA score P 2 - A patient with mild systemic disease as per Piotr Garcia MD. 13:47:30 Post procedure rhythm: unchanged. 13:47:34 Estimated blood loss: 10 ml 13:47:39 ACT drawn and resulted at 242 seconds. (normal therapeutic range 180-240 seconds). 13:47:48 Post procedure instruction explained to patient.Patient verbalizes understanding. 13:47:49 Patient needs reinforcement of post procedure teaching. 13:49:46 Procedure and supply charges have been captured, reviewed, submitted and are correct. 13:50:00 FEMSTOP Gold (E65211) opened to sterile field. 13:50:05 Procedure Complication : No complications 13:50:15 Femstop placed over the right femoral artery at 200 mmHg. Hemostasis achieved. 13:50:19 [facility] Findings: MVD- PCI performed (see procedure note) 13:50:20 Operative report dictated upon procedure completion. 13:50:21 See physician's report for complete and final results. 13:50:27 Report given to Pre/Post Procedure Room. 13:50:30 Patient transfered to Pre/Post Procedure Room with Stretcher. 13:58:51 Vital chart was stopped 13:58:54 Procedure ended. 13:58:54 Full Disclosure recording stopped 13:59:05 ACC-PCI Only Patient was given prescriptions, or instructed by Piotr Garcia MD to start/continue the following medications upon discharge: Plavix 13:59:08 End room use (Document Last) 13:59:29 End room use (Document Last) 13:59:47 End room use (Document Last) Intervention Summary Intervention Notes Time ActionType Lesion and Equipment Action# Pressure Duration Attributes Used 13:22:56 Inflate 1st Diag EMERGE OTW 1 8 00:00 balloon 3.0 x 15 balloon ([id number]) 13:23:06 Reinflate 1st Diag EMERGE OTW 2 10 00:00 balloon 3.0 x 15 balloon ([id number]) 13:26:09 Place stent 1st Diag INTEGRITY RX 3 14 00:00 3.0 x 18 stent ([id number]) 13:27:03 Reinflate 1st Diag INTEGRITY RX 4 4 00:00 stent 3.0 x 18 balloon stent ([id number]) 13:31:46 Place stent Mid LAD INTEGRITY RX 1 14 00:00 3.0 x 09 stent ([id number]) 13:35:06 Place stent 1st Diag INTEGRITY RX 7 14 00:00 3.0 x 15 stent ([id number]) 13:39:22 Reinflate 1st Diag EMERGE OTW 6 8 00:00 balloon 3.0 x 15 balloon ([id number]) 13:40:07 Reinflate 1st Diag EMERGE OTW 5 4 00:00 balloon 3.0 x 15 balloon ([id number]) Device Usage Item Name Manufacture Quantity Catalog Number Hospital Part Current Min imal Lot# / Charge Number Stock Stock Serial# Code ACIST Acist 1 34620 212604 551230 007904 20 Syringe Medical (81369) Systems Inc Bag Decanter Microtek 1 2001S 431367 28083 009976 5 () Medical Inc. Medline Cath Medline 1 [id number] 763340 32767 501609 5 Pack ([id number]) ACIST Hand Acist 1 01981 002713 172334 377966 5 Control Medical (58281) Systems Inc ACIST Acist 1 76886 155455 963398 776605 5 Manifold Medical (43790) Systems Inc EMERALD Cardinal 1 502-455 245009 687453 450097 5 Guide Wire Livra Panels (502-836) GUIDE 6FR Medtronic 1 [id number] 579312 89709 783917 3 EBU 3.5 catheter ([id number]) WHISPER Cabrera 1 [id number] 231251 584237 597158 5 300cm guide Vascular wire ([id number]) INFLATOR eInstruction by [employer] 1 ZC1724 523486 662827 670012 15 [facility] Medical BasixCompak (KA7684) SHEATH 6FR Terumo 1 GGR746 336623 913652 934177 40 Delaplane (NRQ759) EMERGE OTW [place] 1 [id number] 868737 848766 459647 5 [id number] 3.0 x 15 Scientific balloon ([id number]) INTEGRITY RX Medtronic 1 [id number] 197421 622302 275454 5 [id number] 3.0 x 18 stent ([id number]) INTEGRITY RX Medtronic 1 [id number] 589711 058532 099237 5 [id number] 3.0 x 09 stent ([id number]) INTEGRITY RX Medtronic 1 [id number] 190813 984023 479365 5 [id number] 3.0 x 15 stent ([id number]) EXOSEAL 6Fr Cardinal 1 EX600 371099 027743 636296 10 (EX600) Health FEMSTOP Gold [facility] Cornelio 1 [id number] 079246 931015 724823 5 ([id number]) Signature Audit [place] Stage Time Signature Unsigned Intra-Procedure 12/01/2019 Anna Delcid 1:59:29 PM RT(R) Intra-Procedure 12/01/2019 Charlene Camejo RN 1:59:47 PM Intra-Procedure 12/01/2019 Piotr Felix 2:00:01 PM Adriel ELENA [facility] [address] [place] [address]
[~2019-12-01 11:34] MED LIST changes: +CATAPRES0.1 MG PO; +CEFUROXIME250 MG PO
[2019-12-01 12:10] VITALS: BP 204/85; Ht 182.9 cm; Wt 84.8 kg
[2019-12-01 12:32] LABS: BASOPHILS 0.1 % (0-2); EOSINOPHILS 0 % (0-7); HEMATOCRIT 36.2 % (42.0-54.0); IMMATURE GRANULOCYTES 0.2 % (0-5); MCH 30.2 pg (26.0-34.0); MCHC 33.1 g/dL (31.0-37.0); MCV 91.2 fL (80.0-100.0); MEAN PLATELET VOLUME 9.7 fL (7.4-10.4); MONOCYTES 0.9 % (2-11); NEUTROPHILS 89.8 % (40-80); RBC 3.97 10x6/uL (4.20-6.10); RDW 13.3 % (11.5-14.5); WBC 8.8 10x3/uL (4.8-10.8)
[2019-12-01 12:35] LABS: PLATELET COUNT 208 10x3/uL (130-400)
[2019-12-01 12:52] LABS: ANION GAP 7.9 mmol/L (8-16); CALCIUM 8.9 mg/dL (8.5-10.1); CARBON DIOXIDE 30.1 mmol/L (21.0-32.0); CHOL - HDL RATIO 2.5 ratio (2.3-4.9); CREATININE - SERUM 1.1 mg/dL (0.6-1.3); LDL-HDL RATIO 1.3 ratio (1.5-3.5)
[2019-12-01] MEDS ORDERED: NORVASC10 MG PO (14:00)
--- NOTE | 2019-12-01 14:05 | NUR ---
PT RECEIVED VIA STRETCHER FROM ANALYTICAL CONSULTANT FOR RECOVERY. PT DROWSY, VERBALLY AROUSABLE. PT DENIES PAIN, SLIGHT DISCOMFORT FROM FEMOSTOP. IV PATENT INFUSING VIA ORDERS TO L ARM. PT PLACED ON CARDIAC MONITORS AND O2 VIA NC AT 2L. HR NSR RATE 79, BP 191/113, RR 24, SAT 99. PT HAS HX OF HYPERTENSION. 2.5 OF VASOTEC GIVEN IN LAB PER ORDERS FROM DR. SHAY, WILL CONTINUE TO MONITOR. R GROIN W FEMOSTOP IN PLACE, NO ACTIVE BLEEDING NOTED. LEG PINK BUT MOTTLED, PEDAL PULSES PALPABLE. 6FR EXOCELE IN PLACE. PRESSURE AT 200. PT INSTRUCTED TO KEEP HEAD ON PILLOW AND LEG STRAIGHT, HE VERBALIZED UNDERSTANDING. DAUGHTER AT BS, CALL LIGHT IN REACH
--- NOTE | 2019-12-01 14:30 | NUR ---
PT RESTING COMFORTABLY, FEMSTOP IN PLACE, HEMATOMA NOT CHANGED IN SIZE. NO ACTIVE BLEEDING NOTED. PEDAL PULES PALPABLE. VSS, BP SOME BETTER. CALL LIGHT IN REACH
--- NOTE | 2019-12-01 14:45 | NUR ---
FEMSTOP IN PLACE, NO BLEEDING OR CHANGE IN HEMATOMA NOTED. PT C/O PAIN IN GROIN FROM PRESSURE. DR SHAY NOTIFIED, ORDERS RECEIVED.
--- NOTE | 2019-12-01 15:10 | NUR ---
30MG TORADOL SIVP GIVEN PER ORDERS. DR SHAY AT BS, HEMATOMA ASSESSED AND FEMSTOP MOVED SLIGHTLY ABOVE STICK SITE. NO NEW ORDERS RECEIVED. NO BLEEDING NOTED, HEMATOMA SOFT. VSS. DAUGHTER AT BS, CALL LIGHT REMAINS IN REACH
--- NOTE | 2019-12-01 15:35 | NUR ---
PRESSURE REDUCED ON FEMSTOP TO 70, NO BLEEDING OR CHANGES IN HEMATOMA. PT STATES PAIN IS SOME BETTER. HR 70, BP 174/95, RR 12, SAT 97. LEG PINK AND WARM, PEDAL PULSES PALPABLE. CALL LIGHT IN REACH.
--- NOTE | 2019-12-01 16:03 | NUR ---
FEMSTOP REMOVED, NO BLEEDING NOTED. AREA OF HEMATOMA NOT CHANGED, SOFT TO TOUCH. 4X4 AND LG TEGADERM DRESSING APPLIED. LEG PINK AND WARM, PEDAL PULSES PALPABLE. VSS. PT DENIES PAIN OR DISCOMFORT AFTER FEMSTOP REMOVAL. DAUGHTER REMAINS AT BS, CALL LIGHT IN REACH
--- NOTE | 2019-12-01 16:30 | NUR ---
R GROIN SOFT, DRESSING CDI NO S/S BLEEDING. PREVIOUS HEMATOMA SOFT, DECREASED IN SIZE. PT DENIES PAIN OR DISCOMFORT. RESTING COMFORTABLY. HOB ELEVATED SLIGHTLY. CALL LIGHT IN REACH
--- NOTE | 2019-12-01 17:00 | NUR ---
GROIN REMAINS SOFT, DRESSING CDI. NO BLEEDING OR S/S NEW HEMATOMA. VSS. HOB ELEVATED, SANDWICH AND DRINK SERVED. PT VOIDED 500 CC CLEAR YELLOW URINE IN URINAL. CALL LIGHT IN REACH. VSS
--- NOTE | 2019-12-01 17:26 | NUR ---
DISCHARGE INSTRUCTIONS REVIEWED W PT AND DAUGHTER, BOTH VERBALIZED UNDERSTANDING. MEDICATION CHANGES REVIEWED ALSO. IV REMOVED W CATH INTACT, MONITORS AND O2 REMOVED. GROIN REMAINS SOFT, DRESSING CDI. NO S/S HEMATOMA OR BLEEDING.
--- NOTE | 2019-12-01 17:33 | NUR ---
PT DISCHARGED VIA WC TO DAUGHTER WAITING IN PRIVATE VEHICLE. PT HAD ALL BELONGINGS
--- NOTE | 2019-12-05 08:06 | OP ---
PATIENT NAME: CLARISSA GALLEGO MEDICAL RECORD: [id number] :30 LOCATION:D.CAT ADMISSION DATE: SURGEON: HALEY SHAY MD DATE OF OPERATION: 12/01/2019 [facility] STENT REPORT DESCRIPTION OF PROCEDURE: After a 6-Portuguese sheath was placed in the right femoral artery, an XB LAD guiding catheter provided good guide catheter support followed by 300 cm Whisper wire was placed across the 90% stenosed diagonal down this portion of vessel. Pre-deployment balloon used was a 3.0 x 15 mm Gaston balloon up and down the diagonal as well as the 80% stenosed LAD proximally for pre-deployment. Stents deployed were a 3.0 x 18 Integrity [id number] stent to the diagonals showed excellent resolution of a 90% stenosis, no significant residual. Stent deployed in the LAD were a 3.0 x 9 and a 3.0 x 15 mm Integrity stent up to again 14 atmospheres to 45 seconds. Final angiography shows excellent resolution of 80% stenosed LAD stenosis, no significant residual, 90% stenosed diagonal to no significant residual. MARINA flow was 3 throughout the procedure. The patient was previously on Plavix. Heparin was used during the case. Sheath was closed with ExoSeal device. TRANSINT:[id number] Voice Confirmation ID: [id number] DOCUMENT ID: [id number] HALEY SHAY MD at 0806 CC: [id number] DICTATION DATE: 12/01/19 1351 INFORMATICS PHYSICIAN LIAISON: 12/01/19 1548 DEP CLI 12/01/19 [id number] [place] [address]
== END 2019-12-01 17:33 | disposition home or self-care (01) ==
LOC: D.CATH 11:34
PROVIDERS: ATTEND Internal Medicine Interventional Cardiology
DX: I25.10 Atherosclerotic heart disease of native coronary artery without angina pectoris (principal); I10 Essential (primary) hypertension; K21.9 Gastro-esophageal reflux disease without esophagitis

== ENCOUNTER → 2020-01-09 10:48 | Outpatient (CLI) | payer MEDICARE, OTHER ==
[2019-12-01 12:10] VITALS: BMI 25.3
[~2020-01-09 10:48] MED LIST changes: +NORVASC10 MG PO
== END | disposition home or self-care (01) ==
LOC: D.LAB 10:48
PROVIDERS: ATTEND Family Medicine
DX: R19.7 Diarrhea, unspecified (principal)